=== PATIENT | female | born 1965 | race Caucasian/White ===

== ENCOUNTER 2017-11-24 12:35 | Inpatient (IN) | payer MEDICARE, BC ==
[~2017-11-24] VITALS: Ht 170.2 cm; Wt 111.3 kg
[~2017-11-24 12:35] MED LIST: ESMOLOL HCL 100 MG/10 ML VIAL IV ONE; FURO80TA PO; LEVO100T5 PO; PAXI10TA8 PO; PROPOFOL 200 MG/20 ML AMP IV ONE; SODIUM CHLOR 0.9% 250 ML INJ 250 ML IV ONE; TEMA30CA PO
[2017-11-24 12:43] VITALS: BP 150/90; PULSE 107; RESP 18; TEMP 99.5; O2SAT 97
[2017-11-24] MEDS ORDERED: SODIUM CHLORIDE 0.9% FLUSH 10 ML FLUSH IV FLUSH PRN ×3 (13:00→18:15)
--- NOTE | 2017-11-24 13:08 | PD ---
HPI Chief Complaint: Fever Time Seen by Provider: 12:55 Travel History International Travel<30 days: No Contact w/Intl Traveler<30days: No Traveled to known affect area: No History of Present Illness HPI 52 YO F with PMH of ESRD, HTN presents to the ED for evaluation of abnormal result. The patient is followed by Dr. Parks, just placed on the kidney transplant list. She states that she has had a cough 2 days with associated wheezing. She states that yesterday she had a temp of 95.4 and later in the day of 101. Denies fever today. She states that she has been using an unknown intraperitoneal antibiotic 2 days. She endorses bilateral lower extremity edema for the same period of time. She states that she has been infusing approximately 1-2 L of fluid with her IV antibiotics but whenever she withdraws the fluid there is only output of approximately 100-200 mL's. Patient takes 80 mg Lasix daily. She states that she has had bacterial peritonitis approximately 3 weeks ago for which she took 2 weeks of antibiotics. She states that she had peritoneal fluid analysis drawn on Monday and was called today with the result that there was yeast in her peritoneal fluid. She was instructed to come to the emergency room for evaluation and removal of her PD cath. PFSH Social History Tobacco Use: No Allergies-Medications (Allergen,Severity, Reaction): Coded Allergies: adhesive (Unverified Allergy, Intermediate, Rash, 04/13/17) May be due to duration of exposure doxycycline (Unverified Allergy, Intermediate, Tongue Swelling, Hives, ) erythromycin base (Unverified Allergy, Intermediate, Tongue Swelling, Hives, 04/13/17) minocycline (Unverified Allergy, Intermediate, Tongue Swelling, Hives, ) penicillin G (Unverified Allergy, Intermediate, Tongue Swelling, Hives, ) tigecycline (Unverified Allergy, Intermediate, Tongue Swelling, Hives, ) lactose (Unverified Adverse Reaction, Intermediate, 04/13/17) Reported Meds & Prescriptions Reported Meds & Active Scripts Active Reported Renvela (Sevelamer Carbonate) 800 Mg Tab 800 Mg PO TID Trazodone (Trazodone HCl) 50 Mg Tab 50 Mg PO HS Effexor (Venlafaxine HCl) 37.5 Mg Tab 37.5 Mg PO DAILY Amlodipine (Amlodipine Besylate) 10 Mg Tab 10 Mg PO DAILY Furosemide 80 Mg Tab 80 Mg PO DAILY Levothyroxine (Levothyroxine Sodium) 100 Mcg Tab 100 Mcg PO DAILY Review of Systems Except as stated in HPI: all other systems reviewed are Neg Physical Exam Narrative GENERAL: Well-nourished, well-developed obese white female in no acute distress. SKIN: Focused skin assessment warm/dry. HEAD: Normocephalic. EYES: No scleral icterus. No injection or drainage. NECK: Supple, trachea midline. No JVD or lymphadenopathy. CARDIOVASCULAR: Regular rate and rhythm without murmurs, gallops, or rubs. RESPIRATORY: Breath sounds equal with end expiratory wheezing bilaterally. No accessory muscle use. GASTROINTESTINAL: Abdomen soft, non-tender, nondistended. No fluid wave. Active bowel sounds. PD cath in place, implant site well-healed without signs of infection. MUSCULOSKELETAL: No cyanosis. 1+ edema in the bilateral lower extremities. BACK: Nontender without obvious deformity. No CVA tenderness. Data Data Last Documented VS Vital Signs Date Time Temp Pulse Resp B/P (MAP) Pulse Ox O2 Delivery O2 Flow Rate FiO2 11/24/17 14:38 98.9 93 20 190/91 (124) 98 Room Air Orders Orders Complete Blood Count With Diff (11/24/17 12:56) Comprehensive Metabolic Panel (11/24/17 12:56) Prothrombin Time / Inr (Pt) (11/24/17 12:56) Act Partial Throm Time (Ptt) (11/24/17 12:56) Urinalysis - C+S If Indicated (11/24/17 12:56) Iv Access Insert/Monitor (11/24/17 12:56) Ecg Monitoring (11/24/17 12:56) Oximetry (11/24/17 12:56) Sodium Chloride 0.9% Flush (Ns Flush) (11/24/17 13:00) Electrocardiogram (11/24/17 ) Chest, Single Ap (11/24/17 ) B-Type Natriuretic Peptide (11/24/17 13:08) Fluconazole 400 Mg Premix Bag (Diflucan (11/24/17 14:45) Consult Infectious Disease (11/24/17 ) Fluid Culture And Gram Stain (11/24/17 14:34) Fluid Fungus Culture And Stain (11/24/17 14:34) Peritoneal Cell Count + Diff (11/24/17 14:34) Blood Culture (11/24/17 14:34) Consult Nephrology (11/24/17 ) Admit Order (Ed Use Only) (11/24/17 14:53) Labs Laboratory Tests Test 11/24/17 13:19 11/24/17 13:57 White Blood Count 6.7 TH/MM3 Red Blood Count 3.13 MIL/MM3 Hemoglobin 9.3 GM/DL Hematocrit 27.3 % Mean Corpuscular Volume 87.2 FL Mean Corpuscular Hemoglobin 29.9 PG Mean Corpuscular Hemoglobin Concent 34.3 % Red Cell Distribution Width 12.8 % Platelet Count 298 TH/MM3 Mean Platelet Volume 7.3 FL Neutrophils (%) (Auto) 72.8 % Lymphocytes (%) (Auto) 10.6 % Monocytes (%) (Auto) 10.3 % Eosinophils (%) (Auto) 5.7 % Basophils (%) (Auto) 0.6 % Neutrophils # (Auto) 4.9 TH/MM3 Lymphocytes # (Auto) 0.7 TH/MM3 Monocytes # (Auto) 0.7 TH/MM3 Eosinophils # (Auto) 0.4 TH/MM3 Basophils # (Auto) 0.0 TH/MM3 CBC Comment DIFF FINAL Differential Comment Prothrombin Time 9.6 SEC Prothromb Time International Ratio 0.9 RATIO Activated Partial Thromboplast Time 28.8 SEC Blood Urea Nitrogen 44 MG/DL Creatinine 8.80 MG/DL Random Glucose 85 MG/DL Total Protein 6.5 GM/DL Albumin 2.4 GM/DL Calcium Level 8.4 MG/DL Alkaline Phosphatase 49 U/L Aspartate Amino Transf (AST/SGOT) 23 U/L Alanine Aminotransferase (ALT/SGPT) 8 U/L Total Bilirubin 0.2 MG/DL Sodium Level 139 MEQ/L Potassium Level 3.9 MEQ/L Chloride Level 102 MEQ/L Carbon Dioxide Level 26.1 MEQ/L Anion Gap 11 MEQ/L Estimat Glomerular Filtration Rate 5 ML/MIN Urine Color LIGHT-YELLOW Urine Turbidity CLEAR Urine pH 7.0 Urine Specific [place] 1.010 Urine Protein 300 mg/dL Urine Glucose (UA) NEG mg/dL Urine Ketones NEG mg/dL Urine Occult Blood MOD Urine Nitrite NEG Urine Bilirubin NEG Urine Urobilinogen LESS THAN 2.0 MG/DL Urine Leukocyte Esterase NEG Urine RBC 3 /hpf Urine WBC 1 /hpf Urine Squamous Epithelial Cells 1 /hpf Urine Mucus FEW /lpf Microscopic Urinalysis Comment CULT NOT INDICATED MDM Medical Decision Making Medical Screen Exam Complete: Yes Emergency Medical Condition: Yes Differential Diagnosis Bacterial peritonitis versus CHF versus electrolyte abnormality versus other Narrative Course 52-year-old female with PMH of ESRD, HTN presents to the ED after being instructed to seek treatment 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 Parks. Patient recently treated for bacterial peritonitis, recent fluid studies revealed fungal peritonitis. Patient has been treating with intraperitoneal antibiotics at home. She states that she instills 1-2 L of fluid with each dose of antibiotics but is only been able to withdraw 100 -200 mL's. Endorses cough, wheezing and lower extremity edema during the same time. Temp 99.5, pulse 107, BP 150/90 on presentation. On exam this is a nontoxic-appearing white female in no acute distress. She does have end expiratory wheezing bilaterally. Abdomen soft, nontender, PD catheter without signs of infection. There is 1+ edema of the lower extremities. I spoke with Dr. Parks who recommends IVDiflucan, ID consult, admission for Tenckhoff removal. Patient is agreeable with this plan. CBC: WBC 6.7. Hemoglobin 9.3. INR 0.9. BUN 44, creatinine 8.8. Calcium 8.4. Potassium 3.9. BNP pending. UA: No culture indicated. Peritoneal fluid studies ordered and pending. Blood cultures ordered and pending. IV Diflucan initiated. ID consult placed. Consult placed with Dr. Parks. I spoke with Dr. Vazquez, resident who agrees to accept the patient to the medicine service under Dr. Khan. Please see medicine notes for disposition. Marylou Mcmanus Nov 24, 2017 13:08
[2017-11-24 13:09] VITALS: BP 220/102; PULSE 98; RESP 21; O2SAT 96
[2017-11-24 13:32] LABS: AUTOMATED NEUTROPHIL # 4.9 TH/MM3 (1.8-7.7); BASOPHIL % 0.6 % (0.0-2.0); EOSINOPHIL # 0.4 TH/MM3 (0-0.4); EOSINOPHIL % 5.7 % (0.0-4.0); HEMATOCRIT 27.3 % (35.0-46.0); HEMOGLOBIN 9.3 GM/DL (11.6-15.3); LYMPH % 10.6 % (9.0-44.0); LYMPHOCYTE # 0.7 TH/MM3 (1.0-4.8); MEAN CELL VOLUME 87.2 FL (80.0-100.0); MEAN CORPUSCULAR HEMOGLOBIN 29.9 PG (27.0-34.0); MEAN CORPUSCULAR HGB CONC 34.3 % (32.0-36.0); MEAN PLATELET VOLUME 7.3 FL (7.0-11.0); MONO % 10.3 % (0.0-8.0); MONOCYTE # 0.7 TH/MM3 (0-0.9); NEUT % 72.8 % (16.0-70.0); PLATELET COUNT 298 TH/MM3 (150-450); RED BLOOD COUNT 3.13 MIL/MM3 (4.00-5.30); RED CELL DISTRIBUTION WIDTH 12.8 % (11.6-17.2); WHITE BLOOD COUNT 6.7 TH/MM3 (4.0-11.0)
[2017-11-24 13:39] LABS: INTERNATIONAL NORMALIZED RATIO 0.9 RATIO; PROTHROMBIN TIME - PATIENT 9.6 SEC (9.8-11.6)
[2017-11-24 13:44] LABS: ALBUMIN 2.4 GM/DL (3.4-5.0); ALT (GPT) 8 U/L (10-53); AST (GOT) 23 U/L (15-37); BICARBONATE 26.1 MEQ/L (21.0-32.0); BLOOD UREA NITROGEN 44 MG/DL (7-18); CALCIUM 8.4 MG/DL (8.5-10.1); CHLORIDE 102 MEQ/L (98-107); GLOMERULAR FILTRATION RATE 5 ML/MIN (>89); GLUCOSE,RANDOM 85 MG/DL (74-106); SODIUM (NA) 139 MEQ/L (136-145)
[2017-11-24 13:46] LABS: ALKALINE PHOSPHATASE 49 U/L (45-117); TOTAL BILIRUBIN ADULT 0.2 MG/DL (0.2-1.0); TOTAL PROTEIN 6.5 GM/DL (6.4-8.2)
[2017-11-24 14:16] LABS: BILIRUBIN, URINE NEG (NEG); BLOOD, URINE MOD (NEG); GLUCOSE,URINE NEG (NEG); KETONE, URINE NEG (NEG); MUCUS URINE FEW /lpf (OCC); NITRITE,URINE NEG (NEG); SQUAMOUS EPITHELIAL CELL URINE 1 /hpf (0-5); URINE COLOR LIGHT-YELLOW (YELLW/STRAW); URINE LEUKOCYTE ESTERASE NEG (NEG)
[2017-11-24] MEDS ORDERED: SEVEL800 PO (14:25)
[2017-11-24] MEDS ORDERED: AMLO10TA2 PO (14:25)
[2017-11-24] MEDS ORDERED: TRAZ50TA12 PO (14:25)
[2017-11-24] MEDS ORDERED: VENL37.5 PO (14:25)
--- NOTE | 2017-11-24 14:36 | RADRPT ---
EXAM DATE/TIME: 11/24/2017 13:47 [place] COMPARISON: No previous studies available for comparison. INDICATIONS : Fever. MEDICAL HISTORY : Dialysis SURGICAL HISTORY : None. ENCOUNTER: Initial ACUITY: 2 days PAIN SCORE: 3/10 LOCATION: Bilateral chest FINDINGS: A single view of the chest demonstrates the lungs to be symmetrically aerated without evidence of mas s, infiltrate or effusion. The cardiomediastinal contours are unremarkable. Osseous structures are intact. CONCLUSION: 1. No acute cardiopulmonary disease. Kale Wyatt MD on November 24, 2017 at 14:34 Board Certified Radiologist. This report was verified electronically.
[2017-11-24 14:38] VITALS: BP 190/91; PULSE 93; RESP 20; TEMP 98.9; O2SAT 98
[2017-11-24] MEDS ORDERED: FLUCONAZOLE 400 MG PREMIX BAG 200 ML IV ONE (14:45)
--- NOTE | 2017-11-24 14:55 | HHI.HP ---
[facility] Service Family Medicine Primary Care Physician [facility] Admission Diagnosis Diagnoses: International Travel<30 Days: No Contact w/Intl Traveler<30days: No Known Affected Area: No History of Present Illness Patient is a 52 year old female with a past medical history significant of ESRD and HTN who presents to the ED following positive peritoneal fluid cultures per nephrology. Starting Monday, patient noticed that her peritoneal dialysis output was drastically decreased; she input 1000cc but output was limited to 100cc. This decrease in output was accompanied with significant lower extremity edema noted on Monday. On Monday, the patient reported to [facility] for peritoneal dialysis and "PET" testing. The peritoneal fluid was noted to be cloudy and consequently sent off for culture. The patient was started on an intraperitoneal antibiotic at that time. She was called today and told that the culture grew yeast. She was asked to report to the ED. The patient also reports runny nose and congestion, shortness of breath and wheezing as well as a cough since Monday. She coughs up clear mucus and experiences abdominal pain with each cough. She reports fluctuation in body temperature with 101F being the highest recorded temperature at home. She reports chills on . She identifies her granddaughter as a sick contact; she has had a runny nose. Of note, patient was diagnosed with ESRD two years ago; reason unknown. She was placed on the transplant list 11/24/17. She reports being treated for bacterial peritonitis approximately three weeks ago; she was prescribed an antibiotic x2 weeks. Review of Systems Constitutional: COMPLAINS OF: Diaphoretic episodes (At night on Monday ), Fatigue, Fever, Weight gain, Chills, Change in appetite (Decreased ) Eyes: DENIES: Blurred vision, Vision loss, Double Vision Ears, nose, mouth, throat: COMPLAINS OF: Nasal discharge, Running Nose, DENIES : Throat pain, Ear Pain Respiratory: COMPLAINS OF: Cough, Wheezing, Sputum production (Clear ), Shortness of breath Cardiovascular: COMPLAINS OF: Lower Extremity Edema, DENIES: Chest pain, Palpitations Gastrointestinal: COMPLAINS OF: Abdominal pain, Diarrhea (Since Monday ), Nausea (Only Monday), Vomiting (Only Monday ), DENIES: Black stools, Bloody stools, Constipation Genitourinary: COMPLAINS OF: Urinary frequency (More often but decreased volume since Monday ) Musculoskeletal: DENIES: Joint pain, Muscle aches, Back pain Integumentary: DENIES: Rash, Nail changes Hematologic/lymphatic: COMPLAINS OF: Bruising Neurologic: DENIES: Headache Psychiatric: DENIES: Anxiety, Depression, Suicidal Ideation Past Family Social History Past Medical History ESRD HTN Depression Past Surgical History PD cath placement Port placement Tubal ligation Reported Medications Renvela (Sevelamer Carbonate) 800 Mg Tab 800 Mg PO TID Trazodone (Trazodone HCl) 50 Mg Tab 50 Mg PO HS Effexor (Venlafaxine HCl) 37.5 Mg Tab 37.5 Mg PO DAILY Amlodipine (Amlodipine Besylate) 10 Mg Tab 10 Mg PO DAILY Furosemide 80 Mg Tab 80 Mg PO DAILY Levothyroxine (Levothyroxine Sodium) 100 Mcg Tab 100 Mcg PO DAILY Allergies: Coded Allergies: adhesive (Unverified Allergy, Intermediate, Rash, 04/13/17) May be due to duration of exposure doxycycline (Unverified Allergy, Intermediate, Tongue Swelling, Hives, ) erythromycin base (Unverified Allergy, Intermediate, Tongue Swelling, Hives, 04/13/17) minocycline (Unverified Allergy, Intermediate, Tongue Swelling, Hives, ) penicillin G (Unverified Allergy, Intermediate, Tongue Swelling, Hives, ) tigecycline (Unverified Allergy, Intermediate, Tongue Swelling, Hives, ) tetracycline (Verified Allergy, Mild, HIVES, 11/24/17) lactose (Unverified Adverse Reaction, Intermediate, 04/13/17) Active Ordered Medications Current Medications Medications (Trade) Dose Ordered Sig/Dasia Route Start Time Stop Time Status Last Admin (Norvasc) 10 mg DAILY PO 11/24/17 17:00 (Lasix) 80 mg DAILY PO 11/25/17 09:00 (Synthroid) 100 mcg DAILY@0600 PO 11/25/17 06:00 (Renvela) 800 mg TID PO 11/24/17 18:00 (Desyrel) 50 mg HS PO 11/24/17 21:00 (Effexor Xr) 37.5 mg DAILY PO 11/24/17 17:15 (NS Flush) 2 ml UNSCH PRN IV FLUSH 11/24/17 17:00 (NS Flush) 2 ml BID IV FLUSH 11/24/17 21:00 (Zofran Inj) 4 mg Q6H PRN IVP 11/24/17 17:00 (Tylenol) 650 mg Q6H PRN PO 11/24/17 17:00 (Monica-Colace) 1 tab BID PO 11/24/17 21:00 (Milk Of Magnesia Liq) 30 ml Q12H PRN PO 11/24/17 17:00 (Senokot) 17.2 mg Q12H PRN PO 11/24/17 17:00 (Dulcolax Supp) 10 mg DAILY PRN RECTAL 11/24/17 17:00 (Lactulose Liq) 30 ml DAILY PRN PO 11/24/17 17:00 (NS Flush) UNSCH PRN IV FLUSH 11/24/17 18:15 (Heparin Inj) UNSCH PRN IV FLUSH 11/24/17 18:15 Miscellaneous Information ALL NURSING DEPARTME... UNSCH PRN .XX 11/24/17 19:23 11/25/17 19:22 Family History Father - emphysema Social History Lives with dogs. Alcohol: None. Tobacco: None. Smoked for 5 years; quit in 1997. Drugs: None. Physical Exam Vital Signs Vital Signs Date Time Temp Pulse Resp B/P (MAP) Pulse Ox O2 Delivery O2 Flow Rate FiO2 11/24/17 14:38 98.9 93 20 190/91 (124) 98 Room Air 11/24/17 13:11 (141) Room Air 11/24/17 13:09 98 21 220/102 (141) 96 Room Air 11/24/17 12:43 99.5 107 18 150/90 (110) 97 Physical Exam GENERAL: This is a well-nourished, well-developed patient, in no apparent distress. SKIN: Warm and dry. HEAD: Atraumatic. Normocephalic. EYES: Pupils equal round. Extraocular motions intact. No scleral icterus. No injection or drainage. ENT: Nose without bleeding, purulent drainage or septal hematoma. Airway patent. NECK: Trachea midline. Supple, nontender, no meningeal signs. CARDIOVASCULAR: Regular rate and rhythm without murmurs, gallops, or rubs. RESPIRATORY: Clear to auscultation. Breath sounds equal bilaterally. No wheezes , rales, or rhonchi. GASTROINTESTINAL: Abdomen soft, non-tender, nondistended. No hepato-splenomegaly , or palpable masses. No guarding. Cath tubing perturbing from left lower quadrant. No signs of infection. MUSCULOSKELETAL: Extremities without clubbing, cyanosis. Minimal edema, L > R. No joint tenderness, effusion, or edema noted. Calf tenderness on left. NEUROLOGICAL: Awake and alert. Cranial nerves II through XII intact. Motor and sensory grossly within normal limits. Five out of 5 muscle strength in all muscle groups. Normal speech. Laboratory Laboratory Tests Test 11/24/17 13:19 11/24/17 13:57 White Blood Count 6.7 Red Blood Count 3.13 Hemoglobin 9.3 Hematocrit 27.3 Mean Corpuscular Volume 87.2 Mean Corpuscular Hemoglobin 29.9 Mean Corpuscular Hemoglobin Concent 34.3 Red Cell Distribution Width 12.8 Platelet Count 298 Mean Platelet Volume 7.3 Neutrophils (%) (Auto) 72.8 Lymphocytes (%) (Auto) 10.6 Monocytes (%) (Auto) 10.3 Eosinophils (%) (Auto) 5.7 Basophils (%) (Auto) 0.6 Neutrophils # (Auto) 4.9 Lymphocytes # (Auto) 0.7 Monocytes # (Auto) 0.7 Eosinophils # (Auto) 0.4 Basophils # (Auto) 0.0 CBC Comment DIFF FINAL Differential Comment Prothrombin Time 9.6 Prothromb Time International Ratio 0.9 Activated Partial Thromboplast Time 28.8 Blood Urea Nitrogen 44 Creatinine 8.80 Random Glucose 85 Total Protein 6.5 Albumin 2.4 Calcium Level 8.4 Alkaline Phosphatase 49 Aspartate Amino Transf (AST/SGOT) 23 Alanine Aminotransferase (ALT/SGPT) 8 Total Bilirubin 0.2 Sodium Level 139 Potassium Level 3.9 Chloride Level 102 Carbon Dioxide Level 26.1 Anion Gap 11 Estimat Glomerular Filtration Rate 5 Urine Color LIGHT-YELLOW Urine Turbidity CLEAR Urine pH 7.0 Urine Specific [place] 1.010 Urine Protein 300 Urine Glucose (UA) NEG Urine Ketones NEG Urine Occult Blood MOD Urine Nitrite NEG Urine Bilirubin NEG Urine Urobilinogen LESS THAN 2.0 Urine Leukocyte Esterase NEG Urine RBC 3 Urine WBC 1 Urine Squamous Epithelial Cells 1 Urine Mucus FEW Microscopic Urinalysis Comment CULT NOT INDICATED Result Diagram: 11/24/17 1319 11/24/17 1319 Imaging Last 72 hours Impressions Chest X-Ray 11/24/17 0000 Signed Impressions: Service Date/Time: Friday, November 24, 2017 13:47 - CONCLUSION: 1. No acute cardiopulmonary disease. MD Pepe Shah VTE Risk Assessment Pepe VTE Risk Assessment: Mod/High Risk (score >= 2) Pepe Risk Assessment Model Point Value = 1 Point Value = 2 Point Value = 3 Point Value = 5 Age 41-60 Minor surgery BMI > 25 kg/m2 Swollen legs Varicose veins or History of unexplained or recurrent spontaneous Oral contraceptives or hormone replacement Sepsis (< 1 month) Serious lung disease, including pneumonia (< 1 month) Abnormal pulmonary function Acute myocardial infarction Congestive heart failure (< 1 month) History of inflammatory bowel disease Medical patient at bed rest Age 61-74 Arthroscopic surgery Major open surgery (> 45 min) Laparoscopic surgery (> 45 min) Malignancy Confined to bed (> 72 hours) Immobilizing plaster cast Central venous access Age >= 75 History of VTE Family history of VTE Factor V Leiden Prothrombin [id number] Lupus anticoagulant Anticardiolipin antibodies Elevated serum homocysteine Heparin-induced thrombocytopenia Other congenital or acquired thrombophilia Stroke (< 1 month) Elective arthroplasty Hip, pelvis, or leg fracture Acute spinal cord injury (< 1 month) Prophylaxis Regimen Total Risk Factor Score Risk Level Prophylaxis Regimen 0-1 Low Early ambulation 2 Moderate Order ONE of the following: *Sequential Compression Device (SCD) *Heparin 5000 units SQ BID 3-4 Higher Order ONE of the following medications: *Heparin 5000 units SQ TID *Enoxaparin/Lovenox 40 mg SQ daily (WT < 150 kg, CrCl > 30 mL/min) *Enoxaparin/Lovenox 30 mg SQ daily (WT < 150 kg, CrCl > 10-29 mL/min) *Enoxaparin/Lovenox 30 mg SQ BID (WT < 150 kg, CrCl > 30 mL/min) AND/OR *Sequential Compression Device (SCD) 5 or more Highest Order ONE of the following medications: *Heparin 5000 units SQ TID (Preferred with Epidurals) *Enoxaparin/Lovenox 40 mg SQ daily (WT < 150 kg, CrCl > 30 mL/min) *Enoxaparin/Lovenox 30 mg SQ daily (WT < 150 kg, CrCl > 10-29 mL/min) *Enoxaparin/Lovenox 30 mg SQ BID (WT < 150 kg, CrCl > 30 mL/min) AND *Sequential Compression Device (SCD) Assessment and Plan Assessment and Plan Patient is a 52 year old female with a past medical history significant of ESRD and HTN who presents to the ED following positive peritoneal fluid cultures per nephrology. Admitted for PD catheter removal, VasCath placement to allow for HD and anti-fungal therapy. Code Status Full code. Discussed Condition With Drs. Khan and Yamila. Problem List: (1) Peritonitis due to infected peritoneal dialysis catheter ICD Codes: T85.71XA - Infection and inflammatory reaction due to peritoneal dialysis catheter, initial encounter; K65.9 - Peritonitis, unspecified Status: Acute Plan: Patient with history of ESRD on peritoneal dialysis. Peritoneal fluid cultured on Monday, growing yeast per nephrology. Records requested. PD catheter to be removed by vascular surgery on 11/24. ID consulted. Awaiting recommendations. Medications: * In ED, Fluconazole 400mg IV once. * Micafungin 100mg IV daily. (2) ESRD (end stage renal disease) ICD Codes: N18.6 - End stage renal disease Status: Chronic Plan: Patient with history of ESRD, diagnosed two years ago. She undergoes peritoneal dialysis daily at home. She was placed on transplant list 11/24/17. * VasCath to be placed by IR for HD 11/24. * Dialysis per nephrology. (3) Hypertension ICD Codes: I10 - Essential (primary) hypertension Status: Chronic Plan: Patient with history of hypertension. * Continue home meds. * Labetalol 10mg IV q6hr PRN SBP >=170 or DBP >=100. Hold for HR<=60. (4) Lower extremity edema ICD Codes: R60.0 - Localized edema Status: Acute Plan: Left sided lower extremity edema and calf pain. * US Doppler left lower extremity to rule out DVT. (5) Fluid, Electrolyte, Nutrition and Prophylaxis Status: Acute Plan: Fluid: * Tolerates PO. Electrolyte: * Monitor and replete as necessary. Nutrition: * NPO in anticipation of procedure/surgery. Prophylaxis: * SCD. * Chemoprophylaxis held in anticipation of procedure/surgery. Physician Certification 2 Midnight Certification Type: Admission for Inpatient Services Order for Inpatient Services The services are ordered in accordance with Medicare regulations or non- Medicare payer requirements, as applicable. In the case of services not specified as inpatient-only, they are appropriately provided as inpatient services in accordance with the 2-midnight benchmark. Estimated LOS (days): 2 days is the estimated time the patient will need to remain in the hospital, assuming treatment plan goals are met and no additional complications. Post-Hospital Plan: Not yet determined Problem Qualifiers (1) Hypertension: Qualified Codes: I10 - Essential (primary) hypertension Suyapa Vazquez MD R1 Nov 24, 2017 14:55
--- NOTE | 2017-11-24 15:57 | PD ---
Physical Exam Narrative I, Dr. Hurtado, have reviewed the advance practice practitioner's documentation and am in agreement, met with the patient face to face, made the diagnosis, and the medical decision making was done by me. *My assessment and Findings: Patient is a 52 year old female who comes in because of concerns for possible infection of her dialysis port. She has been having issues with fevers and cultures from her dialysis aspirate have grown yeast. Abdomen is soft and nontender. Data Data Last Documented VS Orders Orders Complete Blood Count With Diff (11/24/17 12:56) Comprehensive Metabolic Panel (11/24/17 12:56) Prothrombin Time / Inr (Pt) (11/24/17 12:56) Act Partial Throm Time (Ptt) (11/24/17 12:56) Urinalysis - C+S If Indicated (11/24/17 12:56) Iv Access Insert/Monitor (11/24/17 12:56) Ecg Monitoring (11/24/17 12:56) Oximetry (11/24/17 12:56) Sodium Chloride 0.9% Flush (Ns Flush) (11/24/17 13:00) Electrocardiogram (11/24/17 ) Chest, Single Ap (11/24/17 ) B-Type Natriuretic Peptide (11/24/17 13:08) Fluconazole 400 Mg Premix Bag (Diflucan (11/24/17 14:45) Consult Infectious Disease (11/24/17 ) Fluid Culture And Gram Stain (11/24/17 14:34) Fluid Fungus Culture And Stain (11/24/17 14:34) Peritoneal Cell Count + Diff (11/24/17 14:34) Blood Culture (11/24/17 14:34) Consult Nephrology (11/24/17 ) Admit Order (Ed Use Only) (11/24/17 14:53) Labs Laboratory Tests Test 11/24/17 13:19 11/24/17 13:57 White Blood Count 6.7 TH/MM3 Red Blood Count 3.13 MIL/MM3 Hemoglobin 9.3 GM/DL Hematocrit 27.3 % Mean Corpuscular Volume 87.2 FL Mean Corpuscular Hemoglobin 29.9 PG Mean Corpuscular Hemoglobin Concent 34.3 % Red Cell Distribution Width 12.8 % Platelet Count 298 TH/MM3 Mean Platelet Volume 7.3 FL Neutrophils (%) (Auto) 72.8 % Lymphocytes (%) (Auto) 10.6 % Monocytes (%) (Auto) 10.3 % Eosinophils (%) (Auto) 5.7 % Basophils (%) (Auto) 0.6 % Neutrophils # (Auto) 4.9 TH/MM3 Lymphocytes # (Auto) 0.7 TH/MM3 Monocytes # (Auto) 0.7 TH/MM3 Eosinophils # (Auto) 0.4 TH/MM3 Basophils # (Auto) 0.0 TH/MM3 CBC Comment DIFF FINAL Differential Comment Prothrombin Time 9.6 SEC Prothromb Time International Ratio 0.9 RATIO Activated Partial Thromboplast Time 28.8 SEC Blood Urea Nitrogen 44 MG/DL Creatinine 8.80 MG/DL Random Glucose 85 MG/DL Total Protein 6.5 GM/DL Albumin 2.4 GM/DL Calcium Level 8.4 MG/DL Alkaline Phosphatase 49 U/L Aspartate Amino Transf (AST/SGOT) 23 U/L Alanine Aminotransferase (ALT/SGPT) 8 U/L Total Bilirubin 0.2 MG/DL Sodium Level 139 MEQ/L Potassium Level 3.9 MEQ/L Chloride Level 102 MEQ/L Carbon Dioxide Level 26.1 MEQ/L Anion Gap 11 MEQ/L Estimat Glomerular Filtration Rate 5 ML/MIN B-Type Natriuretic Peptide 101 PG/ML Urine Color LIGHT-YELLOW Urine Turbidity CLEAR Urine pH 7.0 Urine Specific [place] 1.010 Urine Protein 300 mg/dL Urine Glucose (UA) NEG mg/dL Urine Ketones NEG mg/dL Urine Occult Blood MOD Urine Nitrite NEG Urine Bilirubin NEG Urine Urobilinogen LESS THAN 2.0 MG/DL Urine Leukocyte Esterase NEG Urine RBC 3 /hpf Urine WBC 1 /hpf Urine Squamous Epithelial Cells 1 /hpf Urine Mucus FEW /lpf Microscopic Urinalysis Comment CULT NOT INDICATED MDM Supervised Visit with NEGRITO: Yes Narrative Course Labs sent show no acute abnormalities. ID will be consulted for antifungal treatment. Admitted for further management. Diagnosis Primary Impression: Peritonitis due to infected peritoneal dialysis catheter Qualified Codes: T85.71XD - Infection and inflammatory reaction due to peritoneal dialysis catheter, subsequent encounter; K65.9 - Peritonitis, unspecified Scripts Fluconazole (Diflucan) 200 Mg Tab 200 MG PO DAILY, #42 TAB Prov: Suyapa Vazquez MD R1 11/29/17 Brompheniramine-Phenylephrine Liq (Dimaphen Childrens Liq) 1-2.5 Mg/5 Ml Elix 5 ML PO Q6H Y for COUGH, #50 ML Do not exceed 6 doses in 24 hours. Prov: Suyapa Vazquez MD R1 11/29/17 Jackie Hurtado MD Nov 24, 2017 15:57
[2017-11-24 16:08] VITALS: BP 185/88; PULSE 96
--- NOTE | 2017-11-24 16:24 | PD.CONS ---
HPI Service Nephrology Consult Requested By Dr. Khan Reason for Consult ESRD with fungal peritonitis Primary Care Physician [facility] History of Present Illness Patient is a 52-year-old white female with history of end-stage renal disease, hypertension on peritoneal dialysis who is developed peritonitis and was placed on antibiotics vancomycin and ceftazidime, she developed cloudy fluid and reabsorbing most of the fluid, cultures are positive for yeast, patient has been admitted for further management. She complains of some abdominal cramps on the flank area. Review of Systems Constitutional: COMPLAINS OF: Fatigue Respiratory: COMPLAINS OF: Cough Gastrointestinal: COMPLAINS OF: Abdominal pain Psychiatric: COMPLAINS OF: Anxiety, Depression Past Family Social History Allergies: Coded Allergies: adhesive (Unverified Allergy, Intermediate, Rash, 04/13/17) May be due to duration of exposure doxycycline (Unverified Allergy, Intermediate, Tongue Swelling, Hives, ) erythromycin base (Unverified Allergy, Intermediate, Tongue Swelling, Hives, 04/13/17) minocycline (Unverified Allergy, Intermediate, Tongue Swelling, Hives, ) penicillin G (Unverified Allergy, Intermediate, Tongue Swelling, Hives, ) tigecycline (Unverified Allergy, Intermediate, Tongue Swelling, Hives, ) tetracycline (Verified Allergy, Mild, HIVES, 11/24/17) lactose (Unverified Adverse Reaction, Intermediate, 04/13/17) Past Medical History ESRD Hypertension Hypothyroidism Depression Secondary hyperparathyroidism Past Surgical History Tubal ligation Tenckhoff catheter insertion Reported Medications Reported Meds & Active Scripts Active Reported Renvela (Sevelamer Carbonate) 800 Mg Tab 800 Mg PO TID Trazodone (Trazodone HCl) 50 Mg Tab 50 Mg PO HS Effexor (Venlafaxine HCl) 37.5 Mg Tab 37.5 Mg PO DAILY Amlodipine (Amlodipine Besylate) 10 Mg Tab 10 Mg PO DAILY Furosemide 80 Mg Tab 80 Mg PO DAILY Levothyroxine (Levothyroxine Sodium) 100 Mcg Tab 100 Mcg PO DAILY Active Ordered Medications Current Medications Medications (Trade) Dose Ordered Sig/Dasia Route Start Time Stop Time Status Last Admin (NS Flush) 2 ml UNSCH PRN IV FLUSH 11/24/17 13:00 Fluconazole/ Sodium Chloride 200 ml @ 100 mls/hr ONCE ONCE IV 11/24/17 14:45 11/24/17 16:44 11/24/17 16:16 (Norvasc) 10 mg DAILY PO 11/24/17 16:15 UNV (Lasix) 80 mg DAILY PO 11/25/17 09:00 UNV (Synthroid) 100 mcg DAILY PO 11/25/17 09:00 UNV (Renvela) 800 mg TID PO 11/24/17 18:00 UNV (Desyrel) 50 mg HS PO 11/24/17 21:00 UNV Non-Formulary Medication 37.5 mg DAILY PO 11/24/17 16:15 UNV Family History Noncontributory Social History Smoked when she was younger quit several years, alcohol use none Physical Exam Vital Signs Vital Signs Date Time Temp Pulse Resp B/P (MAP) Pulse Ox O2 Delivery O2 Flow Rate FiO2 11/24/17 16:08 96 185/88 (120) 11/24/17 14:38 98.9 93 20 190/91 (124) 98 Room Air 11/24/17 13:11 (141) Room Air 11/24/17 13:09 98 21 220/102 (141) 96 Room Air 11/24/17 12:43 99.5 107 18 150/90 (110) 97 Physical Exam GENERAL: Well-nourished, well-developed patient. SKIN: Warm and dry. HEAD: Normocephalic. EYES: No scleral icterus. No injection or drainage. NECK: Supple, trachea midline. No JVD or lymphadenopathy. CARDIOVASCULAR: Regular rate and rhythm without murmurs, gallops, or rubs. RESPIRATORY: Breath sounds equal bilaterally. No accessory muscle use. GASTROINTESTINAL: Abdomen soft, mild-tender, nondistended. EXTREMITIES: No cyanosis, or edema. NEUROLOGICAL: Awake, alert, and oriented x 3. Non-focal. Laboratory Laboratory Tests Test 11/24/17 13:19 11/24/17 13:57 White Blood Count 6.7 Red Blood Count 3.13 Hemoglobin 9.3 Hematocrit 27.3 Mean Corpuscular Volume 87.2 Mean Corpuscular Hemoglobin 29.9 Mean Corpuscular Hemoglobin Concent 34.3 Red Cell Distribution Width 12.8 Platelet Count 298 Mean Platelet Volume 7.3 Neutrophils (%) (Auto) 72.8 Lymphocytes (%) (Auto) 10.6 Monocytes (%) (Auto) 10.3 Eosinophils (%) (Auto) 5.7 Basophils (%) (Auto) 0.6 Neutrophils # (Auto) 4.9 Lymphocytes # (Auto) 0.7 Monocytes # (Auto) 0.7 Eosinophils # (Auto) 0.4 Basophils # (Auto) 0.0 CBC Comment DIFF FINAL Differential Comment Prothrombin Time 9.6 Prothromb Time International Ratio 0.9 Activated Partial Thromboplast Time 28.8 Blood Urea Nitrogen 44 Creatinine 8.80 Random Glucose 85 Total Protein 6.5 Albumin 2.4 Calcium Level 8.4 Alkaline Phosphatase 49 Aspartate Amino Transf (AST/SGOT) 23 Alanine Aminotransferase (ALT/SGPT) 8 Total Bilirubin 0.2 Sodium Level 139 Potassium Level 3.9 Chloride Level 102 Carbon Dioxide Level 26.1 Anion Gap 11 Estimat Glomerular Filtration Rate 5 Urine Color LIGHT-YELLOW Urine Turbidity CLEAR Urine pH 7.0 Urine Specific [place] 1.010 Urine Protein 300 Urine Glucose (UA) NEG Urine Ketones NEG Urine Occult Blood MOD Urine Nitrite NEG Urine Bilirubin NEG Urine Urobilinogen LESS THAN 2.0 Urine Leukocyte Esterase NEG Urine RBC 3 Urine WBC 1 Urine Squamous Epithelial Cells 1 Urine Mucus FEW Microscopic Urinalysis Comment CULT NOT INDICATED Date/Time Source Procedure Growth Status 11/24/17 14:50 Blood Line Aerobic Blood Culture Pending Received 11/24/17 14:50 Blood Line Anaerobic Blood Culture Pending Received Result Diagram: 11/24/17 1319 11/24/17 1319 Imaging Last Impressions Chest X-Ray 11/24/17 0000 Signed Impressions: Service Date/Time: Friday, November 24, 2017 13:47 - CONCLUSION: 1. No acute cardiopulmonary disease. Kale Wyatt MD Assessment and Plan Problem List: (1) Peritonitis due to infected peritoneal dialysis catheter ICD Codes: T85.71XA - Infection and inflammatory reaction due to peritoneal dialysis catheter, initial encounter; K65.9 - Peritonitis, unspecified Status: Acute Plan: Discussed the plan with the medical team: She needs a Vas-Cath insertion Hemodialysis to be arranged for the morning General surgery consult to take out Tenckhoff catheter Started on Diflucan ID consulted Will follow along with you (2) ESRD (end stage renal disease) ICD Codes: N18.6 - End stage renal disease Status: Chronic Plan: Convert temporarily on hemodialysis she is being treated for fungal peritonitis (3) Hypertension ICD Codes: I10 - Essential (primary) hypertension Status: Chronic Plan: Continue to monitor Problem Qualifiers (1) Peritonitis due to infected peritoneal dialysis catheter: Qualified Codes: T85.71XD - Infection and inflammatory reaction due to peritoneal dialysis catheter, subsequent encounter; K65.9 - Peritonitis, unspecified (2) Hypertension: Qualified Codes: I10 - Essential (primary) hypertension Jayce Parks MD Nov 24, 2017 16:24
[2017-11-24] MEDS ORDERED: ONDANSETRON HCL 4 MG/2 ML VIAL IVP PRN (17:00)
[2017-11-24] MEDS ORDERED: BISACODYL 10 MG SUPP RECTAL PRN (17:00)
[2017-11-24] MEDS ORDERED: MAGNESIUM HYDROXIDE SUSP 30 ML CUP PO PRN (17:00)
[2017-11-24] MEDS ORDERED: LACTULOSE SYRUP 20 GM/30 ML CUP PO PRN (17:00)
[2017-11-24] MEDS ORDERED: SENNOSIDES 8.6 MG TAB PO PRN (17:00)
[2017-11-24] MEDS ORDERED: MIDAZOLAM HCL 2 MG/2 ML VIAL ONE ×2 (17:10→19:28)
[2017-11-24] MEDS: VENLAFAXINE HCL XR 37.5 MG CAP PO SCH (17:15)
[2017-11-24] MEDS ORDERED: VANCOMYCIN HCL 1000 MG VIAL ONE (17:23)
[2017-11-24] MEDS ORDERED: LIDOCAINE 1%/EPINEPHrine 1:100,000 SOLN 30 ML VIAL ONE (17:24)
[2017-11-24] MEDS ORDERED: SODIUM CHLOR 0.9% 250 ML INJ 250 ML ONE (17:24)
[2017-11-24] MEDS ORDERED: VANCOMYCIN 1,000 MG/NS 250 ML IV ONE ×2 (17:30)
[2017-11-24 17:34] LABS: PERITONEAL LYMPHS 13 %; PERITONEAL MONOS 6 %; PERITONEAL POLYS(SEGS) 82 %; PERITONEAL RBC 1173 /MM3 (0-0)
[2017-11-24] MEDS: SEVELAMER CARBONATE 800 MG TAB PO SCH (18:00)
--- NOTE | 2017-11-24 18:05 | PD.RAD ---
Post Procedure Progress Note Pre Procedure Diagnosis: (1) ESRD (end stage renal disease) Post Procedure Diagnosis: (1) Peritonitis due to infected peritoneal dialysis catheter (2) ESRD (end stage renal disease) Procedure Date: Nov 24, 2017 Supervising Radiologist: Kale Wyatt Anesthesia: Local Plan of Activity Patient to Unit: ROPU Patient Condition: Good Additional Comments: HD cath is ready for use See PACS Report for procedural detail/treatment Kale Wyatt MD Nov 24, 2017 18:05
[2017-11-24] MEDS ORDERED: LIDOCAINE HCL 1% PF 10 ML VIAL ONE (18:10)
[2017-11-24] MEDS ORDERED: HEPARIN SODIUM - IV 2,000 UNITS/2 ML VIAL IV FLUSH PRN (18:15)
[2017-11-24] MEDS ORDERED: KETAMINE HCL 500 MG/10 ML VIAL ONE (18:18)
[2017-11-24] MEDS ORDERED: DO NOT ADM ANY ANTICOAGULANT DRUGS PRN (19:23)
--- NOTE | 2017-11-24 20:34 | RADRPT ---
EXAM DATE/TIME: 11/24/2017 19:48 [place] COMPARISON: No previous studies available for comparison. INDICATIONS : Left leg pain. MEDICAL HISTORY : Hypertension. Glasses. Dyspnea. Renal disease. Renal failure. Anxiety. Depression. SURGICAL HISTORY : Tubal ligation. Dialysis port. ENCOUNTER: Initial ACUITY: 2 day PAIN SCORE: 5/10 LOCATION: Left leg. TECHNIQUE: Venous ultrasound of the leg was performed from the inguinal ligament to the proximal calf. Real-holly e, color Doppler and spectral tracing, compression and augmentation techniques were used. FINDINGS: There is normal compressibility of the deep venous system from the inguinal region to the proximal ca lf. No echogenic clot is seen in the lumen of the common femoral, femoral, popliteal, and posterior tibial veins. There is a normal response of the venous system to proximal and distal augmentation an d respiration. CONCLUSION: Normal examination. Dung May MD on November 24, 2017 at 20:32 Board Certified Radiologist. This report was verified electronically.
[2017-11-24] MEDS ORDERED: LABETALOL HCL 100 MG/20 ML VIAL IV PUSH PRN (20:45)
[2017-11-24 21:30] VITALS: BP 165/80; PULSE 100; RESP 19; TEMP 99; O2SAT 97
[2017-11-24] MEDS: traZODone HCL 50 MG TAB PO SCH (22:10)
[2017-11-24] MEDS: DOCUSATE SODIUM 50 MG/SENNA 8.6 MG TAB PO SCH (22:10)
[2017-11-24] MEDS: MICAFUNGIN INJ 100 MG in SODIUM CHLORIDE 0.9% INJ 100 ML IV SCH (22:10)
[2017-11-24] MEDS: SODIUM CHLORIDE 0.9% FLUSH 10 ML FLUSH IV FLUSH SCH (22:10)
[2017-11-24] MEDS ORDERED: MORPHINE SULFATE 2 MG/ML SYRINGE IV PUSH PRN (22:30)
[2017-11-24] MEDS ORDERED: cloNIDine HCL 0.1 MG TAB PO PRN (22:30)
[2017-11-24] MEDS ORDERED: BROMPHENIR/PSEUDOEPH/DEXTROM SYRUP 5 ML CUP PO PRN (22:30)
[2017-11-24] MEDS ORDERED: ACETAMINOPHEN/HYDROcodone 325 MG/5 MG TAB PO PRN (22:30)
[2017-11-24] MEDS: ACETAMINOPHEN/HYDROcodone 325 MG/7.5 MG TAB PO PRN (22:46)
[2017-11-24] MEDS ORDERED: DEXTROMETHORPHAN SYRUP 7.5MG/5ML UDC PO PRN (23:15)
[2017-11-24] MEDS: PHENYLEPHRINE 2.5 MG/BROMPHENIRAMINE 1 MG PER 5 ML UDC PO PRN (23:51)
[2017-11-25] VITALS (9 sets, daily range): BP systolic 147–159; BP diastolic 76–92; PULSE 88–100; RESP 18–22; TEMP 98.3–100.3; O2SAT 91–99
[2017-11-25] MEDS: LEVOTHYROXINE SODIUM 100 MCG TAB PO SCH (05:29)
[2017-11-25] MEDS: ACETAMINOPHEN/HYDROcodone 325 MG/7.5 MG TAB PO PRN ×2 (05:29→12:40)
[2017-11-25] MEDS: PHENYLEPHRINE 2.5 MG/BROMPHENIRAMINE 1 MG PER 5 ML UDC PO PRN ×3 (06:36→21:57)
[2017-11-25 07:22] LABS: AUTOMATED NEUTROPHIL # 4.9 TH/MM3 (1.8-7.7); BASOPHIL % 0.6 % (0.0-2.0); EOSINOPHIL # 0.4 TH/MM3 (0-0.4); EOSINOPHIL % 5.3 % (0.0-4.0); HEMATOCRIT 26.5 % (35.0-46.0); LYMPH % 10.2 % (9.0-44.0); LYMPHOCYTE # 0.7 TH/MM3 (1.0-4.8); MEAN CELL VOLUME 88.8 FL (80.0-100.0); MEAN CORPUSCULAR HEMOGLOBIN 30.2 PG (27.0-34.0); MONO % 9.9 % (0.0-8.0); MONOCYTE # 0.7 TH/MM3 (0-0.9); PLATELET COUNT 238 TH/MM3 (150-450); RED BLOOD COUNT 2.99 MIL/MM3 (4.00-5.30); RED CELL DISTRIBUTION WIDTH 12.8 % (11.6-17.2); WHITE BLOOD COUNT 6.6 TH/MM3 (4.0-11.0)
[2017-11-25 07:45] LABS: ALBUMIN 2.1 GM/DL (3.4-5.0); AST (GOT) 25 U/L (15-37); BICARBONATE 24.6 MEQ/L (21.0-32.0); BLOOD UREA NITROGEN 43 MG/DL (7-18); CALCIUM 8.1 MG/DL (8.5-10.1); CHLORIDE 107 MEQ/L (98-107); GLUCOSE,RANDOM 82 MG/DL (74-106); SODIUM (NA) 142 MEQ/L (136-145)
[2017-11-25 07:48] LABS: ALKALINE PHOSPHATASE 46 U/L (45-117); ALT (GPT) 7 U/L (10-53); CREATININE 8.97 MG/DL (0.50-1.00); GLOMERULAR FILTRATION RATE 5 ML/MIN (>89); TOTAL BILIRUBIN ADULT 0.3 MG/DL (0.2-1.0); TOTAL PROTEIN 5.9 GM/DL (6.4-8.2)
[2017-11-25] MEDS: FUROSEMIDE 80 MG TAB PO SCH (09:10)
[2017-11-25] MEDS: DOCUSATE SODIUM 50 MG/SENNA 8.6 MG TAB PO SCH ×2 (09:10→21:58)
[2017-11-25] MEDS: SEVELAMER CARBONATE 800 MG TAB PO SCH ×3 (09:11→17:40)
[2017-11-25] MEDS: VENLAFAXINE HCL XR 37.5 MG CAP PO SCH (09:11)
[2017-11-25] MEDS: SODIUM CHLORIDE 0.9% FLUSH 10 ML FLUSH IV FLUSH SCH ×2 (09:12→21:59)
--- NOTE | 2017-11-25 10:27 | HHI.FPPN ---
Subjective Remarks Agnieszka Montez is a 52yo lady with h/o ESRD previously on peritoneal dialysis admitted for peritonitis, with peritoneal fluid cultures growing yeast ( collected and sent from her dialysis facility). This note is written in conjunction with resident H&P dated 11/24/17. This morning, pt reports some soreness in her abdomen, at surgical site from removal of dialysis catheter (She is POD#1 from peritoneal dialysis catheter removal). She has a cough, which is improved with Dimetapp. She continues to also have some nasal congestion. She reports urine output has improved since having dialysis catheter removed. She anticipates getting hemodialysis today. ROS: Per resident H&P dated 11/24/17. PMH/PSxH/SocHx/FamHx: Per resident H&P dated 11/24/17. Significant for ESRD, recently treated with peritoneal dialysis. HTN, hypothyroidism. Objective Vitals Vital Signs Date Time Temp Pulse Resp B/P (MAP) Pulse Ox O2 Delivery O2 Flow Rate FiO2 11/25/17 10:02 94 11/25/17 08:31 98.5 90 18 153/80 (104) 91 11/25/17 06:36 18 11/25/17 04:15 98.3 88 22 147/88 (107) 98 11/25/17 00:00 98.8 89 20 150/76 (100) 98 11/24/17 21:30 99.0 100 19 165/80 (108) 97 11/24/17 20:00 99.6 93 17 135/71 (92) 94 Room Air 11/24/17 19:45 103 29 136/73 (94) 98 Room Air 11/24/17 19:30 107 28 134/66 (88) 97 Nasal Cannula 2 11/24/17 19:24 110 19 127/63 (84) 97 Nasal Cannula 2 11/24/17 19:23 97.5 111 22 118/65 (82) 100 Simple Mask 10 11/24/17 16:25 (120) 11/24/17 16:08 96 185/88 (120) 11/24/17 14:38 98.9 93 20 190/91 (124) 98 Room Air 11/24/17 13:11 (141) Room Air 11/24/17 13:09 98 21 220/102 (141) 96 Room Air 11/24/17 12:43 99.5 107 18 150/90 (110) 97 I/O 11/24/17 11/24/17 11/24/17 11/25/17 11/25/17 11/25/17 07:00 15:00 23:00 07:00 15:00 23:00 Intake Total 850 ml 100 ml Output Total 1110 ml 0 ml Balance -260 ml 100 ml Intake Oral 0 ml 0 ml IV Total 450 ml 100 ml Other 400 ml Output Urine Total 0 ml 0 ml Drainage Total 1100 ml Estimated Blood Loss 10 ml # Voids 2 # Bowel Movements 0 0 Result Diagram: 11/25/17 0620 11/25/17 0620 Objective Remarks Per resident H&P dated 11/24/17. Significant for: in NAD, nontoxic. No resp distress. Sitting comfortably in bed. CTAB, no crackles, no wheezes. R chest with vascular access for dialysis. Lower abdomen with bandage covering surgical site. There is some blood noted on the underside of the bandage, slightly larger than original border marking of blood. Abdomen tender, but appropriately so postop. Trace bilateral lower extremity edema. No calf tenderness. A/P Assessment and Plan Patient is a 52 year old female with a past medical history significant of ESRD and HTN who presents to the ED following positive peritoneal fluid cultures per nephrology. Admitted for PD catheter removal, VasCath placement to allow for HD and anti-fungal therapy. Attending Attestation The patient has been seen and examined. The chart and all resident notes have been reviewed. I agree that inpatient care is appropriate and that a two midnight stay is expected for the reasons documented in the resident history and physical. I have discussed this with the resident and certify the resident s order for inpatient admission. Problem List: (1) Peritonitis due to infected peritoneal dialysis catheter ICD Codes: T85.71XA - Infection and inflammatory reaction due to peritoneal dialysis catheter, initial encounter; K65.9 - Peritonitis, unspecified Status: Acute Plan: Patient with history of ESRD on peritoneal dialysis. Peritoneal fluid cultured on Monday, growing yeast per nephrology. Records have been requested. POD #1 (11/24/17) from peritoneal dialysis catheter removal. Appreciate Dr Kellie VEE consulted. Awaiting recommendations. Medications: * In ED, Fluconazole 400mg IV once. * Micafungin 100mg IV daily. * 11/24/17--> (2) ESRD (end stage renal disease) ICD Codes: N18.6 - End stage renal disease Status: Chronic Plan: Patient with history of ESRD, diagnosed two years ago. She previously had peritoneal dialysis daily at home. She was placed on transplant list . * VasCath placed by IR for HD 11/24. * Dialysis per nephrology. (3) Hypertension ICD Codes: I10 - Essential (primary) hypertension Status: Chronic Plan: Patient with history of hypertension. Blood pressure mildly elevated in hospital; anticipate improvement with hemodialysis. * Continue home meds. * Labetalol 10mg IV q6hr PRN SBP >=170 or DBP >=100. Hold for HR<=60. (4) Lower extremity edema ICD Codes: R60.0 - Localized edema Status: Resolved Plan: Left sided lower extremity edema and calf pain, present at admission. * US Doppler left lower extremity to rule out DVT. (5) Hypothyroidism ICD Codes: E03.9 - Hypothyroidism, unspecified Status: Chronic Plan: Continue home synthroid. (6) Depression ICD Codes: F32.9 - Major depressive disorder, single episode, unspecified Status: Chronic Plan: Stable. Continue home medications. (7) Fluid, Electrolyte, Nutrition and Prophylaxis Status: Acute Plan: Fluid: * Tolerating PO. Electrolyte: * Monitor and replete as necessary. Nutrition: * Renal diet Prophylaxis: * SCD. * Chemoprophylaxis had been held in anticipation of procedure/surgery; start heparin when it is stable from a postoperative perspective. Problem Qualifiers (1) Peritonitis due to infected peritoneal dialysis catheter: Qualified Codes: T85.71XD - Infection and inflammatory reaction due to peritoneal dialysis catheter, subsequent encounter; K65.9 - Peritonitis, unspecified (2) Hypertension: Qualified Codes: I10 - Essential (primary) hypertension (3) Hypothyroidism: Qualified Codes: E03.9 - Hypothyroidism, unspecified (4) Depression: Angelica Khan MD Nov 25, 2017 10:27
--- NOTE | 2017-11-25 10:38 | HHI.NPPN ---
Subjective Interval History patient with fungal peritonitis. PD catheter removed. HD today. Objective Data Data Vital Signs Date Time Temp Pulse Resp B/P (MAP) Pulse Ox O2 Delivery O2 Flow Rate FiO2 11/25/17 10:02 94 11/25/17 08:31 98.5 90 18 153/80 (104) 91 11/25/17 06:36 18 11/25/17 04:15 98.3 88 22 147/88 (107) 98 11/25/17 00:00 98.8 89 20 150/76 (100) 98 11/24/17 21:30 99.0 100 19 165/80 (108) 97 11/24/17 20:00 99.6 93 17 135/71 (92) 94 Room Air 11/24/17 19:45 103 29 136/73 (94) 98 Room Air 11/24/17 19:30 107 28 134/66 (88) 97 Nasal Cannula 2 11/24/17 19:24 110 19 127/63 (84) 97 Nasal Cannula 2 11/24/17 19:23 97.5 111 22 118/65 (82) 100 Simple Mask 10 11/24/17 16:25 (120) 11/24/17 16:08 96 185/88 (120) 11/24/17 14:38 98.9 93 20 190/91 (124) 98 Room Air 11/24/17 13:11 (141) Room Air 11/24/17 13:09 98 21 220/102 (141) 96 Room Air 11/24/17 12:43 99.5 107 18 150/90 (110) 97 -: 11/25/17 0620 11/25/17 0620 Microbiology 11/24/17 Aerobic Blood Culture, Received Pending 11/24/17 Anaerobic Blood Culture, Received Pending 11/24/17 Aerobic Blood Culture, Received Pending 11/24/17 Anaerobic Blood Culture, Received Pending 11/24/17 Fungal Smear, Received Pending 11/24/17 Fungal Culture, Received Pending 11/24/17 Gram Stain, Received Pending 11/24/17 Body Fluid Culture, Received Pending 11/24/17 Fungal Smear, Received Pending 11/24/17 Fungal Culture, Received Pending 11/24/17 Acid Fast Stain, Received Pending 11/24/17 Mycobacterial Culture, Received Pending 11/24/17 Gram Stain, Received Pending 11/24/17 Wound Culture, Received Pending Assessment/Plan Problem List: (1) Peritonitis due to infected peritoneal dialysis catheter ICD Codes: T85.71XA - Infection and inflammatory reaction due to peritoneal dialysis catheter, initial encounter; K65.9 - Peritonitis, unspecified Status: Acute Plan: HD today. PD catheter removed. ID on the case. On Diflucan. (2) ESRD (end stage renal disease) ICD Codes: N18.6 - End stage renal disease Status: Chronic Plan: Convert temporarily on hemodialysis she is being treated for fungal peritonitis (3) Hypertension ICD Codes: I10 - Essential (primary) hypertension Status: Chronic Plan: Continue to monitor Problem Qualifiers (1) Hypertension: Qualified Codes: I10 - Essential (primary) hypertension David Roman MD Nov 25, 2017 10:38
--- NOTE | 2017-11-25 16:17 | PD.CAR.PN ---
CVT Progress Note Subjective/Hospital Course: 11/25/17 PD cath removed. Incisions clean dry Abdomen soft Nothing to add to care from surgical point Objective: Vital Signs Date Time Temp Pulse Resp B/P (MAP) Pulse Ox O2 Delivery O2 Flow Rate FiO2 11/25/17 12:25 99.2 95 18 152/79 (103) 95 11/25/17 10:02 94 11/25/17 08:31 98.5 90 18 153/80 (104) 91 11/25/17 06:36 18 11/25/17 04:15 98.3 88 22 147/88 (107) 98 11/25/17 00:00 98.8 89 20 150/76 (100) 98 11/24/17 21:30 99.0 100 19 165/80 (108) 97 11/24/17 20:00 99.6 93 17 135/71 (92) 94 Room Air 11/24/17 19:45 103 29 136/73 (94) 98 Room Air 11/24/17 19:30 107 28 134/66 (88) 97 Nasal Cannula 2 11/24/17 19:24 110 19 127/63 (84) 97 Nasal Cannula 2 11/24/17 19:23 97.5 111 22 118/65 (82) 100 Simple Mask 10 11/24/17 16:25 (120) Labs: Laboratory Tests Test 11/25/17 06:20 White Blood Count 6.6 TH/MM3 (4.0-11.0) Red Blood Count 2.99 MIL/MM3 (4.00-5.30) Hemoglobin 9.0 GM/DL (11.6-15.3) Hematocrit 26.5 % (35.0-46.0) Mean Corpuscular Volume 88.8 FL (80.0-100.0) Mean Corpuscular Hemoglobin 30.2 PG (27.0-34.0) Mean Corpuscular Hemoglobin Concent 34.0 % (32.0-36.0) Red Cell Distribution Width 12.8 % (11.6-17.2) Platelet Count 238 TH/MM3 (150-450) Mean Platelet Volume 8.0 FL (7.0-11.0) Neutrophils (%) (Auto) 74.0 % (16.0-70.0) Lymphocytes (%) (Auto) 10.2 % (9.0-44.0) Monocytes (%) (Auto) 9.9 % (0.0-8.0) Eosinophils (%) (Auto) 5.3 % (0.0-4.0) Basophils (%) (Auto) 0.6 % (0.0-2.0) Neutrophils # (Auto) 4.9 TH/MM3 (1.8-7.7) Lymphocytes # (Auto) 0.7 TH/MM3 (1.0-4.8) Monocytes # (Auto) 0.7 TH/MM3 (0-0.9) Eosinophils # (Auto) 0.4 TH/MM3 (0-0.4) Basophils # (Auto) 0.0 TH/MM3 (0-0.2) CBC Comment DIFF FINAL Differential Comment Blood Urea Nitrogen 43 MG/DL (7-18) Creatinine 8.97 MG/DL (0.50-1.00) Random Glucose 82 MG/DL (74-106) Total Protein 5.9 GM/DL (6.4-8.2) Albumin 2.1 GM/DL (3.4-5.0) Calcium Level 8.1 MG/DL (8.5-10.1) Alkaline Phosphatase 46 U/L (45-117) Aspartate Amino Transf (AST/SGOT) 25 U/L (15-37) Alanine Aminotransferase (ALT/SGPT) 7 U/L (10-53) Total Bilirubin 0.3 MG/DL (0.2-1.0) Sodium Level 142 MEQ/L (136-145) Potassium Level 3.9 MEQ/L (3.5-5.1) Chloride Level 107 MEQ/L (98-107) Carbon Dioxide Level 24.6 MEQ/L (21.0-32.0) Anion Gap 10 MEQ/L (5-15) Estimat Glomerular Filtration Rate 5 ML/MIN (>89) Result Diagram: 11/25/1720 11/25/1720 Terrence Solis MD Nov 25, 2017 16:17
--- NOTE | 2017-11-25 16:30 | EKG ---
Date Performed: 11/24/2017 Time Performed: 13:14:08 PTAGE: 52 years EKG: Sinus rhythm WITH SHORT TX INTERVAL BORDERLINE ECG NO PREVIOUS TRACING DOCTOR: Luana Moraes Interpretating Date/Time 11/25/2017 16:27:46
--- NOTE | 2017-11-25 18:07 | PD.ID.CON ---
History of Present Illness Service ID Consult Requested By Dr Mcmanus Reason for Consult fungal peritonitis Primary Care Physician [facility] Diagnoses: History of Present Illness 52 yo F with h/o ESRD/ on transplant list/ PD dialysis wasw doing OK untill 1-2 weeks ago when she noted abdominal cramping, cloudiness of PD fluid , some low fgrade fevers Initially statrtted on fortaz/vanco IP, but later clx grew out yeast She was started on micafungin PD cath was removed and Permacath was placed Pt was adviced to stay on HD from now on /2 her transplant planned Pt has low grade fever and no leukocytosis She feels better UOP improved Review of Systems Except as stated in HPI: all other systems reviewed are Neg Past Family Social History Allergies: Coded Allergies: adhesive (Unverified Allergy, Intermediate, Rash, 04/13/17) May be due to duration of exposure doxycycline (Unverified Allergy, Intermediate, Tongue Swelling, Hives, ) erythromycin base (Unverified Allergy, Intermediate, Tongue Swelling, Hives, 04/13/17) minocycline (Unverified Allergy, Intermediate, Tongue Swelling, Hives, ) penicillin G (Unverified Allergy, Intermediate, Tongue Swelling, Hives, ) tigecycline (Unverified Allergy, Intermediate, Tongue Swelling, Hives, ) tetracycline (Verified Allergy, Mild, HIVES, 11/24/17) lactose (Unverified Adverse Reaction, Intermediate, 04/13/17) Past Medical History ESRD Hypertension Hypothyroidism Depression Secondary hyperparathyroidism Past Surgical History Tubal ligation Tenckhoff catheter insertion Active Ordered Medications Medications where reviewed in EMR Antibiotics Include: micafungin Family History reviewed Non-Contributory to curretn ID problem Social History remote Tobacco. No ETOH. No Illicit Drugs. Physical Exam Vital Signs Vital Signs Date Time Temp Pulse Resp B/P (MAP) Pulse Ox O2 Delivery O2 Flow Rate FiO2 11/25/17 12:25 99.2 95 18 152/79 (103) 95 11/25/17 10:02 94 11/25/17 08:31 98.5 90 18 153/80 (104) 91 11/25/17 06:36 18 11/25/17 04:15 98.3 88 22 147/88 (107) 98 11/25/17 00:00 98.8 89 20 150/76 (100) 98 11/24/17 21:30 99.0 100 19 165/80 (108) 97 11/24/17 20:00 99.6 93 17 135/71 (92) 94 Room Air 11/24/17 19:45 103 29 136/73 (94) 98 Room Air 11/24/17 19:30 107 28 134/66 (88) 97 Nasal Cannula 2 11/24/17 19:24 110 19 127/63 (84) 97 Nasal Cannula 2 11/24/17 19:23 97.5 111 22 118/65 (82) 100 Simple Mask 10 Physical Exam CONSTITUTIONAL/GENERAL: This is an adequately nourished patient, in no apparent distress. TUBES/LINES/DRAINS: Permacth i place R chest SKIN: No jaundice, rashes, or lesions. Ecchymoses on upper extremities. No wounds seen anteriorly. Skin temperature appropriate. Not diaphoretic. HEAD: Atraumatic. Normocephalic. EYES: Pupils equal and round and reactive. Extraocular motions intact. No scleral icterus. No injection or drainage. Fundi not examined. ENT: Hearing grossly normal. Nose without bleeding or purulent drainage. Throat without visible erythema, exudates, masses, or lesions. NECK: Trachea midline. Supple, nontender. No palpable thyroid enlargement or nodularity. CARDIOVASCULAR: Regular rate and rhythm without murmurs, gallops, or rubs. No JVD. Peripheral pulses symmetric. RESPIRATORY/CHEST: Symmetric, unlabored respirations. Clear to auscultation. Breath sounds equal bilaterally. No wheezes, rales, or rhonchi. GASTROINTESTINAL: Abdomen soft, non-tender, nondistended. No hepato-splenomegaly , or palpable masses. No guarding. Bowel sounds present. Previous Tenckoff site - OK, dressing in place GENITOURINARY: Without palpable bladder distension. MUSCULOSKELETAL: Extremities without clubbing, cyanosis, or edema. No joint tenderness or effusion noted. No calf tenderness. No mottling or clubbing. LYMPHATICS: No palpable cervical or supraclavicular adenopathy. NEUROLOGICAL: Awake and alert. Motor and sensory grossly within normal limits. Follows commands. Cognitively sharp. Moves all extremities. PSYCHIATRIC: No obvious anxiety/depression. no apparent hallucinations or other psychotic thought process. Laboratory Laboratory Tests Test 11/25/17 06:20 White Blood Count 6.6 Red Blood Count 2.99 Hemoglobin 9.0 Hematocrit 26.5 Mean Corpuscular Volume 88.8 Mean Corpuscular Hemoglobin 30.2 Mean Corpuscular Hemoglobin Concent 34.0 Red Cell Distribution Width 12.8 Platelet Count 238 Mean Platelet Volume 8.0 Neutrophils (%) (Auto) 74.0 Lymphocytes (%) (Auto) 10.2 Monocytes (%) (Auto) 9.9 Eosinophils (%) (Auto) 5.3 Basophils (%) (Auto) 0.6 Neutrophils # (Auto) 4.9 Lymphocytes # (Auto) 0.7 Monocytes # (Auto) 0.7 Eosinophils # (Auto) 0.4 Basophils # (Auto) 0.0 CBC Comment DIFF FINAL Differential Comment Blood Urea Nitrogen 43 Creatinine 8.97 Random Glucose 82 Total Protein 5.9 Albumin 2.1 Calcium Level 8.1 Alkaline Phosphatase 46 Aspartate Amino Transf (AST/SGOT) 25 Alanine Aminotransferase (ALT/SGPT) 7 Total Bilirubin 0.3 Sodium Level 142 Potassium Level 3.9 Chloride Level 107 Carbon Dioxide Level 24.6 Anion Gap 10 Estimat Glomerular Filtration Rate 5 Date/Time Source Procedure Growth Status 11/24/17 14:50 Blood Line Aerobic Blood Culture - Preliminary NO GROWTH IN 1 DAY Resulted 11/24/17 14:50 Blood Line Anaerobic Blood Culture - Preliminary NO GROWTH IN 1 DAY Resulted 11/24/17 16:10 Fluid Peritoneal Fluid Fungal Smear - Final NO FUNGAL ELEMENTS SEEN. Resulted 11/24/17 16:10 Fluid Peritoneal Fluid Fungal Culture Pending Resulted 11/24/17 19:04 Wound Other Fungal Smear - Final NO FUNGAL ELEMENTS SEEN. Resulted 11/24/17 19:04 Wound Other Fungal Culture Pending Resulted Result Diagram: 11/25/17 0620 11/25/17 0620 Imaging Last Impressions Lower Extremity Ultrasound 11/24/17 0000 Signed Impressions: Service Date/Time: Friday, November 24, 2017 19:48 - CONCLUSION: Normal examination. Dung May MD Chest X-Ray 11/24/17 0000 Signed Impressions: Service Date/Time: Friday, November 24, 2017 13:47 - CONCLUSION: 1. No acute cardiopulmonary disease. Kale Wyatt MD Assessment and Plan Assessment and Plan Candidal peritonitis aw PD catheter ESRD sp removal of Tenkoff pt is now on HD cont micafungin will need final ID on the yeast - plan to dw Dr Eduard Perry,Fauzia Arellano MD Nov 25, 2017 18:07
[2017-11-25] MEDS: MICAFUNGIN INJ 100 MG in SODIUM CHLORIDE 0.9% INJ 100 ML IV SCH (21:57)
[2017-11-25] MEDS: ACETAMINOPHEN 325 MG TAB PO PRN (21:58)
[2017-11-25] MEDS: traZODone HCL 50 MG TAB PO SCH (21:58)
[2017-11-26] VITALS (7 sets, daily range): BP systolic 125–156; BP diastolic 61–83; PULSE 88–99; RESP 18; TEMP 98.6–99.1; O2SAT 91–96
--- NOTE | 2017-11-26 04:10 | RADRPT ---
EXAM DATE/TIME: 11/24/2017 17:17 [facility] COMPARISON: No previous studies available for comparison. INDICATIONS : Patient presents with non functioning peritoneal catheter in need of a perm cath. MEDICAL HISTORY : ESRD HTN Depression SURGICAL HISTORY : PD cath placement Port placement Tubal ligation ENCOUNTER: Initial ACUITY: 2 days PAIN SCORE: 9/10 LOCATION: Abdomen from coughing FLUORO TIME: 0.2 minutes IMAGE SERIES: 1 SEDATION TIME: 10 minutes ACCESS: Right internal jugular vein SEDATION: 1.) 100 mcg fentanyl (Sublimaze) IV Prophylactic antibiotics were administered with appropriate pre-procedure timing. Vancomycin within 2 hours of procedure, Ancef (or alternative) within 1 hour of procedure. DEVICE: 1. 15 [place] dual lumen 19 cm Wolf II Plus catheter PROCEDURE : 1. Ultrasound-guided venipuncture. 2. PermaCath placement. 3. Conscious sedation with continuous EKG and oximetry monitoring. The risks, benefits and alternatives to the procedure were explained and verbal and written consent w as obtained. The site was prepped in sterile fashion. Full sterile technique was used, including ca p, mask, sterile gloves and gown and a large sterile sheet. Hand hygiene and 2% chlorhexidine and/or betadine/alcohol prep was utilized per protocol for cutaneous antisepsis. Sterile gel and sterile p robe cover were utilized for ultrasound guidance. The skin and subcutaneous tissues were infiltrated with local anesthetic solution. With ultrasound and fluoroscopic guidance a dermatotomy was created over the prescribed vein. A micr opuncture set was used to access the targeted vein and serial dilatation was performed to accept the prescribed length catheter. A subcutaneous tunnel was created in a retrograde fashion the catheter w as pulled through the tunnel. The catheter was flushed and assembled and locked with heparin. The c atheter was sutured in place. Conscious sedation was performed with the prescribed dosages and duration as above in the presence of an independent trained radiology nurse to assist in the monitoring of the patient. EKG and oximetry remained stable throughout the procedure. The patient tolerated the procedure well and there were n o complications. The patient was sent to post anesthesia recovery in stable condition. CONCLUSION: Uncomplicated PermaCath placement as above. Kale Wyatt MD on November 26, 2017 at 4:08 Board Certified Radiologist. This report was verified electronically.
[2017-11-26] MEDS: LEVOTHYROXINE SODIUM 100 MCG TAB PO SCH (06:22)
[2017-11-26] MEDS: HEPARIN SODIUM - SQ 10,000 UNITS/ML VIAL SQ SCH ×3 (06:22→21:17)
[2017-11-26 08:07] LABS: AUTOMATED NEUTROPHIL # 4.5 TH/MM3 (1.8-7.7); BASOPHIL % 0.7 % (0.0-2.0); EOSINOPHIL # 0.6 TH/MM3 (0-0.4); EOSINOPHIL % 8.4 % (0.0-4.0); HEMATOCRIT 27.2 % (35.0-46.0); HEMOGLOBIN 9.4 GM/DL (11.6-15.3); LYMPHOCYTE # 0.9 TH/MM3 (1.0-4.8); MEAN CELL VOLUME 88.8 FL (80.0-100.0); MEAN CORPUSCULAR HEMOGLOBIN 30.6 PG (27.0-34.0); MEAN CORPUSCULAR HGB CONC 34.5 % (32.0-36.0); MONO % 10.3 % (0.0-8.0); MONOCYTE # 0.7 TH/MM3 (0-0.9); NEUT % 66.6 % (16.0-70.0); PLATELET COUNT 225 TH/MM3 (150-450); RED BLOOD COUNT 3.06 MIL/MM3 (4.00-5.30); WHITE BLOOD COUNT 6.7 TH/MM3 (4.0-11.0)
[2017-11-26 08:38] LABS: ALBUMIN 2.1 GM/DL (3.4-5.0); ALKALINE PHOSPHATASE 47 U/L (45-117); ALT (GPT) 7 U/L (10-53); AST (GOT) 29 U/L (15-37); BICARBONATE 26.4 MEQ/L (21.0-32.0); BLOOD UREA NITROGEN 30 MG/DL (7-18); CALCIUM 8.4 MG/DL (8.5-10.1); CHLORIDE 104 MEQ/L (98-107); CREATININE 7.34 MG/DL (0.50-1.00); GLOMERULAR FILTRATION RATE 6 ML/MIN (>89); GLUCOSE,RANDOM 82 MG/DL (74-106); SODIUM (NA) 140 MEQ/L (136-145); TOTAL BILIRUBIN ADULT 0.3 MG/DL (0.2-1.0); TOTAL PROTEIN 6.3 GM/DL (6.4-8.2)
[2017-11-26] MEDS: VENLAFAXINE HCL XR 37.5 MG CAP PO SCH (08:53)
[2017-11-26] MEDS: FUROSEMIDE 80 MG TAB PO SCH (08:53)
[2017-11-26] MEDS: DOCUSATE SODIUM 50 MG/SENNA 8.6 MG TAB PO SCH ×2 (08:54→21:17)
[2017-11-26] MEDS: SEVELAMER CARBONATE 800 MG TAB PO SCH ×3 (08:54→19:39)
[2017-11-26] MEDS: SODIUM CHLORIDE 0.9% FLUSH 10 ML FLUSH IV FLUSH SCH ×2 (08:55→21:17)
[2017-11-26] MEDS: ACETAMINOPHEN 325 MG TAB PO PRN (09:02)
--- NOTE | 2017-11-26 12:48 | HHI.NPPN ---
Subjective Interval History Had dialysis yesterday. Next hemodialysis will be tomorrow. Objective Data Data Vital Signs Date Time Temp Pulse Resp B/P (MAP) Pulse Ox O2 Delivery O2 Flow Rate FiO2 11/26/17 12:27 98.6 90 18 129/72 (91) 92 11/26/17 08:23 99.1 93 18 156/72 (100) 91 11/26/17 05:34 98.7 90 18 150/79 (102) 93 11/26/17 00:30 99.0 88 18 125/61 (82) 93 11/25/17 23:39 18 11/25/17 21:50 100.3 11/25/17 21:32 99 21 11/25/17 20:52 99.6 100 18 159/92 (114) 99 -: 11/26/17 0640 11/26/17 0640 Physical Exam General Appearance: Well Developed, No Acute Distress Neck Neck Exam: Neck Supple Pulmonary Resp Exam: Clear Bilaterally Cardiology CV Exam: Regular, Normal Sinus Rhythm Gastrointestinal/Abdomen GI Exam: Soft, Non-Tender Assessment/Plan Problem List: (1) Peritonitis due to infected peritoneal dialysis catheter ICD Codes: T85.71XA - Infection and inflammatory reaction due to peritoneal dialysis catheter, initial encounter; K65.9 - Peritonitis, unspecified Status: Acute Plan: HD tomorrow PD catheter removed. ID on the case. On Diflucan. Discussed with Dr. Perry: final identification is awaited. (2) ESRD (end stage renal disease) ICD Codes: N18.6 - End stage renal disease Status: Chronic Plan: Convert temporarily on hemodialysis she is being treated for fungal peritonitis (3) Hypertension ICD Codes: I10 - Essential (primary) hypertension Status: Chronic Plan: Continue to monitor Problem Qualifiers (1) Peritonitis due to infected peritoneal dialysis catheter: Qualified Codes: T85.71XD - Infection and inflammatory reaction due to peritoneal dialysis catheter, subsequent encounter; K65.9 - Peritonitis, unspecified (2) Hypertension: Qualified Codes: I10 - Essential (primary) hypertension David Roman MD Nov 26, 2017 12:48
--- NOTE | 2017-11-26 14:01 | HHI.IDPN ---
Subjective Subjective Remarks doing OK afebrile c o some disconmfort in the abd wall where she had tencoff Antibiotics micafungin Allergies: Coded Allergies: adhesive (Unverified Allergy, Intermediate, Rash, 04/13/17) May be due to duration of exposure doxycycline (Unverified Allergy, Intermediate, Tongue Swelling, Hives, ) erythromycin base (Unverified Allergy, Intermediate, Tongue Swelling, Hives, 04/13/17) minocycline (Unverified Allergy, Intermediate, Tongue Swelling, Hives, ) penicillin G (Unverified Allergy, Intermediate, Tongue Swelling, Hives, ) tigecycline (Unverified Allergy, Intermediate, Tongue Swelling, Hives, ) tetracycline (Verified Allergy, Mild, HIVES, 11/24/17) lactose (Unverified Adverse Reaction, Intermediate, 04/13/17) Objective . Vital Signs Date Time Temp Pulse Resp B/P (MAP) Pulse Ox O2 Delivery O2 Flow Rate FiO2 11/26/17 12:27 98.6 90 18 129/72 (91) 92 11/26/17 08:23 99.1 93 18 156/72 (100) 91 11/26/17 05:34 98.7 90 18 150/79 (102) 93 11/26/17 00:30 99.0 88 18 125/61 (82) 93 11/25/17 23:39 18 11/25/17 21:50 100.3 11/25/17 21:32 99 21 11/25/17 20:52 99.6 100 18 159/92 (114) 99 . Laboratory Tests Test 11/25/17 06:20 11/26/17 06:40 White Blood Count 6.6 TH/MM3 6.7 TH/MM3 Red Blood Count 2.99 MIL/MM3 3.06 MIL/MM3 Hemoglobin 9.0 GM/DL 9.4 GM/DL Hematocrit 26.5 % 27.2 % Mean Corpuscular Volume 88.8 FL 88.8 FL Mean Corpuscular Hemoglobin 30.2 PG 30.6 PG Mean Corpuscular Hemoglobin Concent 34.0 % 34.5 % Red Cell Distribution Width 12.8 % 13.0 % Platelet Count 238 TH/MM3 225 TH/MM3 Mean Platelet Volume 8.0 FL 8.0 FL Neutrophils (%) (Auto) 74.0 % 66.6 % Lymphocytes (%) (Auto) 10.2 % 14.0 % Monocytes (%) (Auto) 9.9 % 10.3 % Eosinophils (%) (Auto) 5.3 % 8.4 % Basophils (%) (Auto) 0.6 % 0.7 % Neutrophils # (Auto) 4.9 TH/MM3 4.5 TH/MM3 Lymphocytes # (Auto) 0.7 TH/MM3 0.9 TH/MM3 Monocytes # (Auto) 0.7 TH/MM3 0.7 TH/MM3 Eosinophils # (Auto) 0.4 TH/MM3 0.6 TH/MM3 Basophils # (Auto) 0.0 TH/MM3 0.0 TH/MM3 CBC Comment DIFF FINAL DIFF FINAL Differential Comment Laboratory Tests Test 11/25/17 06:20 11/26/17 06:40 Blood Urea Nitrogen 43 MG/DL 30 MG/DL Creatinine 8.97 MG/DL 7.34 MG/DL Random Glucose 82 MG/DL 82 MG/DL Total Protein 5.9 GM/DL 6.3 GM/DL Albumin 2.1 GM/DL 2.1 GM/DL Calcium Level 8.1 MG/DL 8.4 MG/DL Alkaline Phosphatase 46 U/L 47 U/L Aspartate Amino Transf (AST/SGOT) 25 U/L 29 U/L Alanine Aminotransferase (ALT/SGPT) 7 U/L 7 U/L Total Bilirubin 0.3 MG/DL 0.3 MG/DL Sodium Level 142 MEQ/L 140 MEQ/L Potassium Level 3.9 MEQ/L 3.7 MEQ/L Chloride Level 107 MEQ/L 104 MEQ/L Carbon Dioxide Level 24.6 MEQ/L 26.4 MEQ/L Anion Gap 10 MEQ/L 10 MEQ/L Estimat Glomerular Filtration Rate 5 ML/MIN 6 ML/MIN Microbiology Date/Time Source Procedure Growth Status 11/24/17 14:50 Blood Line Aerobic Blood Culture - Preliminary NO GROWTH IN 2 DAYS Resulted 11/24/17 14:50 Blood Line Anaerobic Blood Culture - Preliminary NO GROWTH IN 2 DAYS Resulted 11/24/17 14:50 Blood Line Aerobic Blood Culture - Preliminary NO GROWTH IN 2 DAYS Resulted 11/24/17 14:50 Blood Line Anaerobic Blood Culture - Preliminary NO GROWTH IN 2 DAYS Resulted 11/24/17 16:10 Fluid Peritoneal Fluid Fungal Smear - Final NO FUNGAL ELEMENTS SEEN. Resulted 11/24/17 16:10 Fluid Peritoneal Fluid Fungal Culture Pending Resulted 11/24/17 16:10 Fluid Peritoneal Fluid Gram Stain - Final Resulted 11/24/17 16:10 Body Fluid Culture - Preliminary Yeast Species Resulted 11/24/17 19:04 Wound Other Fungal Smear - Final NO FUNGAL ELEMENTS SEEN. Resulted 11/24/17 19:04 Wound Other Fungal Culture Pending Resulted 11/24/17 19:04 Wound Other Acid Fast Stain Pending Received 11/24/17 19:04 Wound Other Mycobacterial Culture Pending Received 11/24/17 19:04 Wound Other Gram Stain - Final Resulted 11/24/17 19:04 Wound Culture - Preliminary Yeast Species Resulted Imaging Last Impressions Lower Extremity Ultrasound 11/24/17 0000 Signed Impressions: Service Date/Time: Friday, November 24, 2017 19:48 - CONCLUSION: Normal examination. Dung May MD Chest X-Ray 11/24/17 0000 Signed Impressions: Service Date/Time: Friday, November 24, 2017 13:47 - CONCLUSION: 1. No acute cardiopulmonary disease. Kale Wyatt MD Catheter Placement X-Ray 11/24/17 0000 Signed Impressions: Service Date/Time: Friday, November 24, 2017 17:17 - CONCLUSION: Uncomplicated PermaCath placement as above. Kale Wyatt MD Physical Exam CONSTITUTIONAL/GENERAL: This is an adequately nourished patient, in no apparent distress. TUBES/LINES/DRAINS: Permacth i place R chest RESPIRATORY/CHEST: Symmetric, unlabored respirations. Clear to auscultation. Breath sounds equal bilaterally. No wheezes, rales, or rhonchi. GASTROINTESTINAL: Abdomen soft, non-tender, nondistended. No hepato-splenomegaly , or palpable masses. No guarding. Bowel sounds present. Previous Tenckoff site - OKn stirry strips in place minimal serosang drainage Assessment & Plan Remarks Candidal peritonitis aw PD catheter - PD fluid growing yeast, no other org's ESRD sp removal of Tenkoff pt is now on HD cont micafungin will need final ID on the yeast - dw Dr Jenaro Perry,Fauzia Arellano MD Nov 26, 2017 14:01
--- NOTE | 2017-11-26 14:22 | HHI.FPPN ---
Subjective Remarks Patient seen and examined bedside today. Patient states she had no acute events overnight. She continues to have coughing since Monday. She thinks that her coughing is getting worse. She does not feel short of breath. She does not feel fever/chills. (Marbella Driscoll MD R2) Objective Vitals Vital Signs Date Time Temp Pulse Resp B/P (MAP) Pulse Ox O2 Delivery O2 Flow Rate FiO2 11/26/17 12:27 98.6 90 18 129/72 (91) 92 11/26/17 08:23 99.1 93 18 156/72 (100) 91 11/26/17 05:34 98.7 90 18 150/79 (102) 93 11/26/17 00:30 99.0 88 18 125/61 (82) 93 11/25/17 23:39 18 11/25/17 21:50 100.3 11/25/17 21:32 99 21 11/25/17 20:52 99.6 100 18 159/92 (114) 99 I/O 11/25/17 11/25/17 11/25/17 11/26/17 11/26/17 11/26/17 07:00 15:00 23:00 07:00 15:00 23:00 Intake Total 100 ml Output Total 0 ml 1500 ml Balance 100 ml -1500 ml Intake Oral 0 ml IV Total 100 ml Output Urine Total 0 ml Hemodialysis 1500 ml # Bowel Movements 0 (Marbella Driscoll MD R2) Result Diagram: 11/26/17 0640 11/26/17 0640 Objective Remarks GENERAL: In no acute distress. When sitting up for exam patient does go into a coughing fit. She is not in respiratory distress SKIN: Warm and dry. Vascular access placed. Bandage covering removal of PD catheter HEAD: Normocephalic. EYES: No scleral icterus. No injection or drainage. NECK: Supple, trachea midline. No JVD or lymphadenopathy. CARDIOVASCULAR: Regular rate and rhythm without murmurs, gallops, or rubs. RESPIRATORY: Breath sounds equal bilaterally. No accessory muscle use. GASTROINTESTINAL: Abdomen soft, non-tender, nondistended. Tenderness around site of PD catheter, no blood or drainage from bandage MUSCULOSKELETAL: No cyanosis, or edema. BACK: Nontender without obvious deformity. No CVA tenderness. (Marbella Driscoll MD R2) A/P Assessment and Plan Patient is a 52 year old female with a past medical history significant of ESRD and HTN who presents to the ED following positive peritoneal fluid cultures per nephrology. Admitted for PD catheter removal, VasCath placement to allow for HD and anti-fungal therapy. Discharge Planning Pending final identification of culture per ID recommendation (Marbella Driscoll MD R2) Attending Attestation Patient seen and examined, discussed with resident team. I agree with assessment and management as documented and discussed with me. Pt feels well, except for increasing productive cough. She denies chest pain, fever. Await ID/sensitivities on PD fluid cultures. Continue micafungin. Appreciate ID, nephrology. (Angelica Khan MD) Problem List: (1) Cough ICD Codes: R05 - Cough Status: Acute Plan: Cough 5 days, worsening, low-grade temperature last night of 100.3, associated with nausea Follow-up repeat chest x-ray Follow-up sputum culture Follow-up influenza Follow-up respiratory panel Continue Eula and david (2) Peritonitis due to infected peritoneal dialysis catheter ICD Codes: T85.71XA - Infection and inflammatory reaction due to peritoneal dialysis catheter, initial encounter; K65.9 - Peritonitis, unspecified Status: Acute Plan: Patient with history of ESRD on peritoneal dialysis. Peritoneal fluid cultured on Monday, growing yeast per nephrology. Records have been requested. POD #2 (11/24/17) from peritoneal dialysis catheter removal. Appreciate Dr Kellie VEE consulted. Recommends awaiting final culture Medications: * In ED, Fluconazole 400mg IV once. * Micafungin 100mg IV daily. * 11/24/17--> (3) ESRD (end stage renal disease) ICD Codes: N18.6 - End stage renal disease Status: Chronic Plan: Patient with history of ESRD, diagnosed two years ago. She previously had peritoneal dialysis daily at home. She was placed on transplant list . * VasCath placed by IR for HD 11/24. * Dialysis per nephrology. * Plan for hemodialysis tomorrow (4) Hypertension ICD Codes: I10 - Essential (primary) hypertension Status: Chronic Plan: Patient with history of hypertension. Blood pressure mildly elevated in hospital; anticipate improvement with hemodialysis. BPs have improved over the last 24 hours * Continue home meds. * Labetalol 10mg IV q6hr PRN SBP >=170 or DBP >=100. Hold for HR<=60. (5) Lower extremity edema ICD Codes: R60.0 - Localized edema Status: Resolved Plan: Left sided lower extremity edema and calf pain, present at admission. * US Doppler left lower extremity to rule out DVT. (6) Hypothyroidism ICD Codes: E03.9 - Hypothyroidism, unspecified Status: Chronic Plan: Continue home synthroid. (7) Depression ICD Codes: F32.9 - Major depressive disorder, single episode, unspecified Status: Chronic Plan: Stable. Continue home medications. (8) Fluid, Electrolyte, Nutrition and Prophylaxis Status: Acute Plan: Fluid: * Tolerating PO. Electrolyte: * Monitor and replete as necessary. Nutrition: * Renal diet Prophylaxis: * SCD. * Chemoprophylaxis: Heparin 5000 units 3 times daily (Marbella Driscoll MD R2) Problem Qualifiers (1) Peritonitis due to infected peritoneal dialysis catheter: Qualified Codes: T85.71XD - Infection and inflammatory reaction due to peritoneal dialysis catheter, subsequent encounter; K65.9 - Peritonitis, unspecified (2) Hypertension: Qualified Codes: I10 - Essential (primary) hypertension (3) Hypothyroidism: Qualified Codes: E03.9 - Hypothyroidism, unspecified (4) Depression: Marbella Driscoll MD R2 Nov 26, 2017 14:22 Angelica Khan MD Nov 28, 2017 06:42
--- NOTE | 2017-11-26 15:34 | RADRPT ---
EXAM DATE/TIME: 11/26/2017 14:30 [facility] COMPARISON: CHEST SINGLE AP, November 24, 2017, 13:47. INDICATIONS : Wheezing and shortness of breath. MEDICAL HISTORY : None. SURGICAL HISTORY : Port. ENCOUNTER: Subsequent ACUITY: 2 days PAIN SCORE: 0/10 LOCATION: Bilateral chest FINDINGS: Right-sided dialysis catheters present in satisfactory position. The lungs are focally clear. No effu pascual present. Cardiomediastinal contours are satisfactory. CONCLUSION: No acute disease Papo Richard MD on November 26, 2017 at 15:31 Board Certified Radiologist. This report was verified electronically.
[2017-11-26] MEDS: MICAFUNGIN INJ 100 MG in SODIUM CHLORIDE 0.9% INJ 100 ML IV SCH (21:16)
[2017-11-26] MEDS: traZODone HCL 50 MG TAB PO SCH (21:17)
[2017-11-26] MEDS: PHENYLEPHRINE 2.5 MG/BROMPHENIRAMINE 1 MG PER 5 ML UDC PO PRN (22:24)
[2017-11-27] VITALS (7 sets, daily range): BP systolic 135–181; BP diastolic 68–104; PULSE 84–97; RESP 18–20; TEMP 97.6–98.7; O2SAT 92–95
[2017-11-27] MEDS ORDERED: RESP: ALBUTEROL 2.5 MG/3 ML NEB (PRN) INH (01:00)
[2017-11-27] MEDS: LEVOTHYROXINE SODIUM 100 MCG TAB PO SCH (06:37)
[2017-11-27] MEDS: HEPARIN SODIUM - SQ 10,000 UNITS/ML VIAL SQ SCH ×3 (06:40→21:48)
--- NOTE | 2017-11-27 08:16 | MB ---
cc: Terrence Solis MD, Slobodan MD DATE: 11/24/2017 REASON FOR CONSULTATION: Infected peritoneal dialysis catheter, renal failure. HISTORY OF PRESENT ILLNESS: This patient with longstanding renal failure presents with fever, chills and cough with wheezing. The patient was worked up and found to have a peritoneal dialysis catheter with peritonitis at this point and this has been treated now for about 3 weeks or so. At this point, I am requested to remove the PD catheter. PAST MEDICAL HISTORY: Renal failure, hypertension and depression. PAST SURGICAL HISTORY: Tubal ligation, several PD catheter placements. MEDICATIONS: Multiple and can be found on the chart. ALLERGIES: This can be found in the record. PHYSICAL EXAMINATION: GENERAL; Reveals a somewhat overweight 52-year-old female in no acute distress. HEENT: Normocephalic. No trauma to the head. Pupils equal, reactive. Extraocular muscles intact. Sclerae are nonicteric. NECK: Bilateral carotid pulses. No bruits. CHEST: Clear, bilateral breath sounds. HEART: Regular rhythm. ABDOMEN: Soft. Hypoactive bowel sounds. Scars on the abdominal wall from previous PD catheter placements. No rebound, no guarding, no masses. Actually, the patient is not tender at this point. EXTREMITIES: Within normal limits. Good proximal distal pulses. No vascular deficit. BACK: Normal. IMPRESSION: A patient with end-stage renal failure, on transplant list, with peritonitis. We will remove the dialysis catheter on an urgent basis today. Thank you much for referral. MD MARIE Brooke/ , 07:17 PM , 07:31 PM
[2017-11-27] MEDS: SODIUM CHLORIDE 0.9% FLUSH 10 ML FLUSH IV FLUSH SCH ×2 (09:00→21:51)
[2017-11-27] MEDS: SEVELAMER CARBONATE 800 MG TAB PO SCH ×3 (09:00→17:42)
[2017-11-27] MEDS: VENLAFAXINE HCL XR 37.5 MG CAP PO SCH ×2 (09:00→14:12)
[2017-11-27] MEDS: FUROSEMIDE 80 MG TAB PO SCH ×2 (09:00→14:12)
[2017-11-27] MEDS: DOCUSATE SODIUM 50 MG/SENNA 8.6 MG TAB PO SCH ×2 (09:00→21:47)
--- NOTE | 2017-11-27 09:26 | MP ---
cc: Terrence Solis MD DATE OF OPERATION: 11/24/2017 PREOPERATIVE DIAGNOSIS: Infected peritoneal dialysis catheter, end-stage renal failure. POSTOPERATIVE DIAGNOSIS: Infected peritoneal dialysis catheter, end-stage renal failure. PROCEDURE PERFORMED: Dialysis catheter removal. SURGEON: Terrence Solis MD ANESTHESIA: 1% Xylocaine MAC. ESTIMATED BLOOD LOSS: 10 mL PROCEDURE IN DETAIL: The patient was prepped and draped in the usual fashion. The area infiltrated with 1% Xylocaine. Small incision was made over the proximal cuff of the catheter, which is subcutaneous. This one is freed up and with a sharp dissection, the cuff is freed up. The catheter is now sort of pulled and it gives me the direction of the second cuff. The area is infiltrated with 1% Xylocaine. Then, vertical incision is made over the second cuff down to the peritoneum. Cuff is obviously subfascial, so this is freed up around the peritoneum and then very carefully the distal end of the catheter is retrieved and then both ends of the catheter are pulled up and the thyroid cuff freed up with cautery. The catheter is now cut in half and then both ends are removed. The area irrigated with the copious amounts of saline. Peritoneal opening closed with a 2-0 Vicryl [id number], so is the fascia. Skin is closed with 4-0 Monocryl. The patient tolerated the procedure well. The catheter was sent for cultures. MD MARIE Brooke/ , 07:19 PM , 07:36 PM
[2017-11-27 10:28] LABS: AUTOMATED NEUTROPHIL # 4.6 TH/MM3 (1.8-7.7); BASOPHIL # 0.1 TH/MM3 (0-0.2); BASOPHIL % 1.2 % (0.0-2.0); EOSINOPHIL # 0.5 TH/MM3 (0-0.4); EOSINOPHIL % 7.9 % (0.0-4.0); HEMATOCRIT 29.5 % (35.0-46.0); HEMOGLOBIN 10.1 GM/DL (11.6-15.3); LYMPH % 16.1 % (9.0-44.0); LYMPHOCYTE # 1.1 TH/MM3 (1.0-4.8); MEAN CELL VOLUME 88.6 FL (80.0-100.0); MEAN CORPUSCULAR HEMOGLOBIN 30.3 PG (27.0-34.0); MEAN CORPUSCULAR HGB CONC 34.2 % (32.0-36.0); MEAN PLATELET VOLUME 8.4 FL (7.0-11.0); MONO % 7.5 % (0.0-8.0); MONOCYTE # 0.5 TH/MM3 (0-0.9); NEUT % 67.3 % (16.0-70.0); PLATELET COUNT 243 TH/MM3 (150-450); RED BLOOD COUNT 3.34 MIL/MM3 (4.00-5.30); RED CELL DISTRIBUTION WIDTH 12.8 % (11.6-17.2); WHITE BLOOD COUNT 6.8 TH/MM3 (4.0-11.0)
[2017-11-27 10:47] LABS: BICARBONATE 25.3 MEQ/L (21.0-32.0); CALCIUM 8.5 MG/DL (8.5-10.1); CREATININE 8.24 MG/DL (0.50-1.00)
--- NOTE | 2017-11-27 11:35 | HHI.NPPN ---
Objective Data Data 11/27/17 11/28/17 19:00 07:00 Output Total 1500 ml Balance -1500 ml Hemodialysis 1500 ml Vital Signs Date Time Temp Pulse Resp B/P (MAP) Pulse Ox O2 Delivery O2 Flow Rate FiO2 11/27/17 07:56 97.7 84 20 142/70 (94) 94 11/27/17 05:32 97.6 86 18 157/73 (101) 92 11/27/17 01:00 98.7 94 18 151/83 (105) 93 11/26/17 23:30 95 11/26/17 20:00 98.8 99 18 143/83 (103) 96 11/26/17 15:59 98.6 95 18 131/74 (93) 91 11/26/17 12:27 98.6 90 18 129/72 (91) 92 -: 11/27/17 0740 11/27/17 0740 Microbiology 11/27/17 Gram Stain, Received Pending 11/27/17 Sputum Culture, Received Pending Physical Exam General Appearance: Well Developed, No Acute Distress Neck Neck Exam: Neck Supple Pulmonary Resp Exam: Clear Bilaterally Cardiology CV Exam: Regular, Normal Sinus Rhythm Gastrointestinal/Abdomen GI Exam: Soft, Non-Tender Assessment/Plan Problem List: (1) Peritonitis due to infected peritoneal dialysis catheter ICD Codes: T85.71XA - Infection and inflammatory reaction due to peritoneal dialysis catheter, initial encounter; K65.9 - Peritonitis, unspecified Status: Acute Plan: ESRD on HD PermCath inserted UF 1.5 L she will need HD set up called [facility] continue HD until fungal Peritonitis is treated Will follow along with you (2) ESRD (end stage renal disease) ICD Codes: N18.6 - End stage renal disease Status: Chronic Plan: Convert temporarily on hemodialysis she is being treated for fungal peritonitis (3) Hypertension ICD Codes: I10 - Essential (primary) hypertension Status: Chronic Plan: Continue to monitor Problem Qualifiers (1) Peritonitis due to infected peritoneal dialysis catheter: Qualified Codes: T85.71XD - Infection and inflammatory reaction due to peritoneal dialysis catheter, subsequent encounter; K65.9 - Peritonitis, unspecified (2) Hypertension: Qualified Codes: I10 - Essential (primary) hypertension Jayce Parks MD Nov 27, 2017 11:34
--- NOTE | 2017-11-27 14:01 | HHI.FPPN ---
Addendum to progress note ADDENDUM Reason for addendum: Additonal documentation Additional information Spoke with KRISTINA Cadet at dialysis center. Peritoneal fluid culture results are as follows: Viky Parapsilosis Sensitive to Fluconazole ANTHONY = 1 Sensitive to Itraconazole ANTHONY = 0.12 Sensitive to Voraconazole ANTHONY = 0.015 Angelica Khan MD Nov 27, 2017 14:01
--- NOTE | 2017-11-27 16:08 | HHI.FPPN ---
Subjective Remarks Patient was seen and evaluated this morning. She was undergoing hemodialysis during encounter. She reports feeling well. She denies chest pain, shortness of breath, nausea, vomiting, diarrhea and constipation. All questions were answered. (Suyapa Vazquez MD R1) Objective Vitals Vital Signs Date Time Temp Pulse Resp B/P (MAP) Pulse Ox O2 Delivery O2 Flow Rate FiO2 11/27/17 12:13 97.8 88 20 157/77 (103) 93 11/27/17 07:56 97.7 84 20 142/70 (94) 94 11/27/17 05:32 97.6 86 18 157/73 (101) 92 11/27/17 01:00 98.7 94 18 151/83 (105) 93 11/26/17 23:30 95 11/26/17 20:00 98.8 99 18 143/83 (103) 96 11/26/17 15:59 98.6 95 18 131/74 (93) 91 I/O 11/26/17 11/26/17 11/26/17 11/27/17 11/27/17 11/27/17 07:00 15:00 23:00 07:00 15:00 23:00 Intake Total 100 ml Output Total 1500 ml Balance 100 ml -1500 ml IV Total 100 ml Hemodialysis 1500 ml (Suyapa Vazquez MD R1) Result Diagram: 11/27/17 0740 11/27/17 0740 Imaging Last 72 hours Impressions Chest X-Ray 11/26/17 0000 Signed Impressions: Service Date/Time: Sunday, November 26, 2017 14:30 - CONCLUSION: No acute disease Papo Richard MD Objective Remarks GENERAL: This is a well-nourished, well-developed patient, in no apparent distress. SKIN: Warm and dry. VasCath placed on right. Bandage covering incision site of PD catheter removal. HEAD: Atraumatic. Normocephalic. EYES: Pupils equal round. Extraocular motions intact. No scleral icterus. No injection or drainage. ENT: Nose without bleeding, purulent drainage or septal hematoma. Airway patent. NECK: Trachea midline. Supple, nontender, no meningeal signs. CARDIOVASCULAR: Regular rate and rhythm without murmurs, gallops, or rubs. RESPIRATORY: Clear to auscultation anteriorly. Breath sounds equal bilaterally. No wheezes, rales, or rhonchi. GASTROINTESTINAL: Abdomen soft, non-tender, nondistended. No hepato-splenomegaly , or palpable masses. No guarding. MUSCULOSKELETAL: Extremities without clubbing, cyanosis. NEUROLOGICAL: Awake and alert. Cranial nerves II through XII intact. Motor and sensory grossly within normal limits. Five out of 5 muscle strength in all muscle groups. Normal speech. Medications and IVs Current Medications Medications (Trade) Dose Ordered Sig/Dasia Route Start Time Stop Time Status Last Admin (Norvasc) 10 mg DAILY PO 11/24/17 17:00 11/26/17 08:57 (Lasix) 80 mg DAILY PO 11/25/17 09:00 11/27/17 14:12 (Synthroid) 100 mcg DAILY@0600 PO 11/25/17 06:00 11/27/17 06:37 (Renvela) 800 mg TID PO 11/24/17 18:00 11/27/17 12:51 (Desyrel) 50 mg HS PO 11/24/17 21:00 11/26/17 21:17 (Effexor Xr) 37.5 mg DAILY PO 11/24/17 17:15 11/27/17 14:12 (NS Flush) 2 ml UNSCH PRN IV FLUSH 11/24/17 17:00 11/26/17 10:53 (NS Flush) 2 ml BID IV FLUSH 11/24/17 21:00 11/26/17 21:17 (Zofran Inj) 4 mg Q6H PRN IVP 11/24/17 17:00 11/26/17 10:52 (Tylenol) 650 mg Q6H PRN PO 11/24/17 17:00 11/26/17 09:02 (Monica-Colace) 1 tab BID PO 11/24/17 21:00 11/26/17 21:17 (Milk Of Magnesia Liq) 30 ml Q12H PRN PO 11/24/17 17:00 (Senokot) 17.2 mg Q12H PRN PO 11/24/17 17:00 11/26/17 06:42 (Dulcolax Supp) 10 mg DAILY PRN RECTAL 11/24/17 17:00 (Lactulose Liq) 30 ml DAILY PRN PO 11/24/17 17:00 (NS Flush) UNSCH PRN IV FLUSH 11/24/17 18:15 (Heparin Inj) UNSCH PRN IV FLUSH 11/24/17 18:15 (Trandate Inj) 10 mg Q6H PRN IV PUSH 11/24/17 20:45 Micafungin Sodium 100 mg/Sodium Chloride 100 ml @ 100 mls/hr Q24H IV 11/24/17 21:00 11/26/17 21:16 (Catapres) 0.1 mg Q6H PRN PO 11/24/17 22:30 ([place] 5-325 Mg) 1 tab Q4H PRN PO 11/24/17 22:30 ([place] 7.5-325 Mg) 1 tab Q4H PRN PO 11/24/17 22:30 11/25/17 12:40 (Morphine Inj) 1 mg Q3H PRN IV PUSH 11/24/17 22:30 (Dimetapp Liq) 5 ml Q6H PRN PO 11/24/17 23:15 11/26/17 22:24 (Robitussin La Pediatric Cough Liq) 3.75 mg Q6H PRN PO 11/24/17 23:15 11/24/17 23:51 (Heparin Inj) 5,000 units Q8H SQ 11/26/17 06:00 11/27/17 14:13 (Albuterol Neb) 2.5 mg Q4HR NEB PRN INH 11/27/17 01:00 (Suyapa Vazquez MD R1) Urinary Catheter: No (Suyapa Vazquez MD R1) Vascular Central Line Catheter: No (Suyapa Vazquez MD R1) A/P Assessment and Plan Patient is a 52 year old female with a past medical history significant of ESRD and HTN who presents to the ED following positive peritoneal fluid cultures per nephrology. Admitted for PD catheter removal, VasCath placement to allow for HD and anti-fungal therapy. Discharge Planning Pending final identification of culture per ID recommendation (Suyapa Vazquez MD R1) Attending Attestation Patient seen and examined, discussed with resident team. I agree with assessment and management as documented and discussed with me. Pt seen in dialysis. She reports cough is improved. Continue micafungin, while we await sensitivities, to determine course of treatment for fungal peritoneal infection. Dialysis chair to be arranged as an outpt. (Angelica Khan MD) Problem List: (1) Cough ICD Codes: R05 - Cough Status: Acute Plan: Cough 5 days, stable. CXR: No acute disease. Sputum culture pending. Continue Bromphen and Robitussin. (2) Peritonitis due to infected peritoneal dialysis catheter ICD Codes: T85.71XA - Infection and inflammatory reaction due to peritoneal dialysis catheter, initial encounter; K65.9 - Peritonitis, unspecified Status: Acute Plan: Patient with history of ESRD on peritoneal dialysis. Peritoneal fluid cultured on Monday, growing yeast per nephrology. Records have been requested. Peritoneal dialysis catheter removal 11/24. ID consulted. Recommends awaiting final culture Medications: * In ED, Fluconazole 400mg IV once. * Micafungin 100mg IV daily. * 11/24/17--> (3) ESRD (end stage renal disease) ICD Codes: N18.6 - End stage renal disease Status: Chronic Plan: Patient with history of ESRD, diagnosed two years ago. She previously had peritoneal dialysis daily at home. She was placed on transplant list . * VasCath placed by IR for HD 11/24. * Dialysis per nephrology. (4) Lower extremity edema ICD Codes: R60.0 - Localized edema Status: Resolved Plan: Left sided lower extremity edema and calf pain, present at admission. * US Doppler left lower extremity to rule out DVT. (5) Hypertension ICD Codes: I10 - Essential (primary) hypertension Status: Chronic Plan: Patient with history of hypertension. Blood pressure mildly elevated in hospital; anticipate improvement with hemodialysis. BPs have improved over the last 24 hours. * Continue home meds. * Labetalol 10mg IV q6hr PRN SBP >=170 or DBP >=100. Hold for HR<=60. (6) Hypothyroidism ICD Codes: E03.9 - Hypothyroidism, unspecified Status: Chronic Plan: Patient with history of hypothyroidism. * Continue home meds. (7) Depression ICD Codes: F32.9 - Major depressive disorder, single episode, unspecified Status: Chronic Plan: Patient with history of depression. * Continue home meds. (8) Fluid, Electrolyte, Nutrition and Prophylaxis Status: Acute Plan: Fluid: * Tolerating PO. Electrolyte: * Monitor and replete as necessary. Nutrition: * Renal diet Prophylaxis: * SCD. * Chemoprophylaxis: Heparin 5000 units q8hr. (Suyapa Vazquez MD R1) Problem Qualifiers (1) Peritonitis due to infected peritoneal dialysis catheter: Qualified Codes: T85.71XD - Infection and inflammatory reaction due to peritoneal dialysis catheter, subsequent encounter; K65.9 - Peritonitis, unspecified (2) Hypertension: Qualified Codes: I10 - Essential (primary) hypertension (3) Hypothyroidism: Qualified Codes: E03.9 - Hypothyroidism, unspecified (4) Depression: Suyapa Vazquez MD R1 Nov 27, 2017 16:08 Angelica Khan MD Nov 28, 2017 06:46
--- NOTE | 2017-11-27 16:58 | HHI.IDPN ---
Subjective Subjective Remarks doing OK afebrile no c/o She grew C. parapsolosa in the periotoneal fluid clx Antibiotics micafungin Allergies: Coded Allergies: adhesive (Unverified Allergy, Intermediate, Rash, 04/13/17) May be due to duration of exposure doxycycline (Unverified Allergy, Intermediate, Tongue Swelling, Hives, ) erythromycin base (Unverified Allergy, Intermediate, Tongue Swelling, Hives, 04/13/17) minocycline (Unverified Allergy, Intermediate, Tongue Swelling, Hives, ) penicillin G (Unverified Allergy, Intermediate, Tongue Swelling, Hives, ) tigecycline (Unverified Allergy, Intermediate, Tongue Swelling, Hives, ) tetracycline (Verified Allergy, Mild, HIVES, 11/24/17) lactose (Unverified Adverse Reaction, Intermediate, 04/13/17) Objective . Vital Signs Date Time Temp Pulse Resp B/P (MAP) Pulse Ox O2 Delivery O2 Flow Rate FiO2 11/27/17 15:47 98.6 97 20 135/68 (90) 94 11/27/17 12:13 97.8 88 20 157/77 (103) 93 11/27/17 07:56 97.7 84 20 142/70 (94) 94 11/27/17 05:32 97.6 86 18 157/73 (101) 92 11/27/17 01:00 98.7 94 18 151/83 (105) 93 11/26/17 23:30 95 11/26/17 20:00 98.8 99 18 143/83 (103) 96 11/27/17 11/27/17 11/28/17 15:00 23:00 07:00 Intake Total 360 ml Output Total 1500 ml Balance -1500 ml 360 ml Intake Oral 360 ml Hemodialysis 1500 ml # Voids 3 . Laboratory Tests Test 11/26/17 06:40 11/27/17 07:40 White Blood Count 6.7 TH/MM3 6.8 TH/MM3 Red Blood Count 3.06 MIL/MM3 3.34 MIL/MM3 Hemoglobin 9.4 GM/DL 10.1 GM/DL Hematocrit 27.2 % 29.5 % Mean Corpuscular Volume 88.8 FL 88.6 FL Mean Corpuscular Hemoglobin 30.6 PG 30.3 PG Mean Corpuscular Hemoglobin Concent 34.5 % 34.2 % Red Cell Distribution Width 13.0 % 12.8 % Platelet Count 225 TH/MM3 243 TH/MM3 Mean Platelet Volume 8.0 FL 8.4 FL Neutrophils (%) (Auto) 66.6 % 67.3 % Lymphocytes (%) (Auto) 14.0 % 16.1 % Monocytes (%) (Auto) 10.3 % 7.5 % Eosinophils (%) (Auto) 8.4 % 7.9 % Basophils (%) (Auto) 0.7 % 1.2 % Neutrophils # (Auto) 4.5 TH/MM3 4.6 TH/MM3 Lymphocytes # (Auto) 0.9 TH/MM3 1.1 TH/MM3 Monocytes # (Auto) 0.7 TH/MM3 0.5 TH/MM3 Eosinophils # (Auto) 0.6 TH/MM3 0.5 TH/MM3 Basophils # (Auto) 0.0 TH/MM3 0.1 TH/MM3 CBC Comment DIFF FINAL DIFF FINAL Differential Comment Laboratory Tests Test 11/26/17 06:40 11/27/17 07:40 Blood Urea Nitrogen 30 MG/DL 35 MG/DL Creatinine 7.34 MG/DL 8.24 MG/DL Random Glucose 82 MG/DL 75 MG/DL Total Protein 6.3 GM/DL Albumin 2.1 GM/DL Calcium Level 8.4 MG/DL 8.5 MG/DL Alkaline Phosphatase 47 U/L Aspartate Amino Transf (AST/SGOT) 29 U/L Alanine Aminotransferase (ALT/SGPT) 7 U/L Total Bilirubin 0.3 MG/DL Sodium Level 140 MEQ/L 139 MEQ/L Potassium Level 3.7 MEQ/L 3.5 MEQ/L Chloride Level 104 MEQ/L 103 MEQ/L Carbon Dioxide Level 26.4 MEQ/L 25.3 MEQ/L Anion Gap 10 MEQ/L 11 MEQ/L Estimat Glomerular Filtration Rate 6 ML/MIN 5 ML/MIN Microbiology Date/Time Source Procedure Growth Status 11/27/17 01:00 Sputum Expectorated Sputum Gram Stain - Final Resulted 11/27/17 01:00 Sputum Expectorated Sputum Sputum Culture Pending Resulted 11/24/17 19:04 Wound Other Fungal Smear - Final NO FUNGAL ELEMENTS SEEN. Resulted 11/24/17 19:04 Wound Other Fungal Culture Pending Resulted 11/24/17 19:04 Wound Other Acid Fast Stain - Final NO ACID FAST BACILLI SEEN Resulted 11/24/17 19:04 Wound Other Mycobacterial Culture Pending Resulted 11/24/17 19:04 Wound Other Gram Stain - Final Complete 11/24/17 19:04 Wound Culture - Final Viky Parapsilosis Complete Imaging Last Impressions Chest X-Ray 11/26/17 0000 Signed Impressions: Service Date/Time: Sunday, November 26, 2017 14:30 - CONCLUSION: No acute disease Papo Richard MD Lower Extremity Ultrasound 11/24/17 0000 Signed Impressions: Service Date/Time: Friday, November 24, 2017 19:48 - CONCLUSION: Normal examination. Dung May MD Catheter Placement X-Ray 11/24/17 0000 Signed Impressions: Service Date/Time: Friday, November 24, 2017 17:17 - CONCLUSION: Uncomplicated PermaCath placement as above. Kale Wyatt MD Physical Exam CONSTITUTIONAL/GENERAL: This is an adequately nourished patient, in no apparent distress. Assessment & Plan Remarks Viky parapsilosa peritonitis aw PD catheter ESRD sp removal of [place] pt is now on HD dc micafungin start fluconazole [address] Eduard Perry,Fauzia Arellano MD Nov 27, 2017 16:58
[2017-11-27] MEDS: FLUCONAZOLE 200 MG TAB PO SCH (17:42)
[2017-11-27] MEDS: traZODone HCL 50 MG TAB PO SCH (21:47)
[2017-11-28] VITALS (7 sets, daily range): BP systolic 156–188; BP diastolic 77–100; PULSE 81–93; RESP 18–20; TEMP 97.1–98.3; O2SAT 94–97
[2017-11-28] MEDS: LEVOTHYROXINE SODIUM 100 MCG TAB PO SCH (06:04)
[2017-11-28] MEDS: HEPARIN SODIUM - SQ 10,000 UNITS/ML VIAL SQ SCH ×3 (06:04→22:01)
[2017-11-28 07:17] LABS: AUTOMATED NEUTROPHIL # 5.1 TH/MM3 (1.8-7.7); BASOPHIL # 0.1 TH/MM3 (0-0.2); BASOPHIL % 0.9 % (0.0-2.0); EOSINOPHIL # 0.6 TH/MM3 (0-0.4); EOSINOPHIL % 8.5 % (0.0-4.0); HEMATOCRIT 33.4 % (35.0-46.0); HEMOGLOBIN 11.4 GM/DL (11.6-15.3); LYMPH % 16.9 % (9.0-44.0); LYMPHOCYTE # 1.3 TH/MM3 (1.0-4.8); MEAN CELL VOLUME 88.6 FL (80.0-100.0); MEAN CORPUSCULAR HEMOGLOBIN 30.1 PG (27.0-34.0); MEAN PLATELET VOLUME 8.1 FL (7.0-11.0); MONO % 6.2 % (0.0-8.0); MONOCYTE # 0.5 TH/MM3 (0-0.9); NEUT % 67.5 % (16.0-70.0); PLATELET COUNT 242 TH/MM3 (150-450); RED BLOOD COUNT 3.77 MIL/MM3 (4.00-5.30); RED CELL DISTRIBUTION WIDTH 12.8 % (11.6-17.2); WHITE BLOOD COUNT 7.5 TH/MM3 (4.0-11.0)
[2017-11-28 07:58] LABS: BICARBONATE 28.4 MEQ/L (21.0-32.0); CALCIUM 9.1 MG/DL (8.5-10.1); CREATININE 6.16 MG/DL (0.50-1.00)
[2017-11-28] MEDS: FLUCONAZOLE 200 MG TAB PO SCH (10:19)
[2017-11-28] MEDS: SEVELAMER CARBONATE 800 MG TAB PO SCH ×3 (10:19→18:00)
[2017-11-28] MEDS: VENLAFAXINE HCL XR 37.5 MG CAP PO SCH (10:19)
[2017-11-28] MEDS: FUROSEMIDE 80 MG TAB PO SCH (10:20)
--- NOTE | 2017-11-28 17:16 | HHI.FPPN ---
Subjective Remarks Patient seen and examined this morning bedside. Patient states that her cough has been getting better. She denies any fever or chills overnight. She denies any difficulty breathing. She has not had any further nausea or vomiting. Patient is ready to go home is in asking when she can go home. (Marbella Driscoll MD R2) Objective Vitals Vital Signs Date Time Temp Pulse Resp B/P (MAP) Pulse Ox O2 Delivery O2 Flow Rate FiO2 11/28/17 12:00 97.9 87 20 168/84 (112) 94 11/28/17 08:00 97.9 81 20 164/77 (106) 94 11/28/17 04:00 97.1 84 18 188/100 (129) 97 11/28/17 00:35 180/78 (112) 11/28/17 00:00 97.6 88 18 95 11/27/17 20:00 98.2 93 20 169/104 (125) 94 I/O 11/27/17 11/27/17 11/27/17 11/28/17 11/28/17 11/28/17 07:00 15:00 23:00 07:00 15:00 23:00 Intake Total 360 ml Output Total 1500 ml Balance -1500 ml 360 ml Intake Oral 360 ml Hemodialysis 1500 ml # Voids 3 1 (Marbella Driscoll MD R2) Result Diagram: 11/28/1739 11/28/17 0639 Objective Remarks GENERAL: This is a well-nourished, well-developed patient, in no apparent distress. SKIN: Warm and dry. VasCath placed on right. Bandage covering incision site of PD catheter removal. HEAD: Atraumatic. Normocephalic. EYES: Pupils equal round. Extraocular motions intact. No scleral icterus. No injection or drainage. ENT: Nose without bleeding, purulent drainage or septal hematoma. Airway patent. NECK: Trachea midline. Supple, nontender, no meningeal signs. CARDIOVASCULAR: Regular rate and rhythm without murmurs, gallops, or rubs. RESPIRATORY: Clear to auscultation anteriorly. Breath sounds equal bilaterally. No wheezes, rales, or rhonchi. Coarse breath sounds at bases GASTROINTESTINAL: Abdomen soft, non-tender, nondistended. No hepato-splenomegaly , or palpable masses. No guarding. MUSCULOSKELETAL: Extremities without clubbing, cyanosis. NEUROLOGICAL: Awake and alert. Cranial nerves II through XII intact. Motor and sensory grossly within normal limits. Five out of 5 muscle strength in all muscle groups. Normal speech. (Marbella Driscoll MD R2) A/P Assessment and Plan Patient is a 52 year old female with a past medical history significant of ESRD and HTN who presents to the ED following positive peritoneal fluid cultures per nephrology. Admitted for PD catheter removal, VasCath placement to allow for HD and anti-fungal therapy. Discharge Planning Pending dialysis chair (Marbella Driscoll MD R2) Attending Attestation Patient seen and examined, discussed with resident team. I agree with assessment and management as documented and discussed with me. Pt reports no complaints. Fungal culture reviewed; appreciate ID who has changed micafungin to diflucan. Await arrangement of dialysis chair. (Angelica Khan MD) Problem List: (1) Cough ICD Codes: R05 - Cough Status: Acute Plan: Cough 5 days, stable. CXR: No acute disease. Sputum culture: Normal respiratory rosa Continue Bromphen and Robitussin. (2) Peritonitis due to infected peritoneal dialysis catheter ICD Codes: T85.71XA - Infection and inflammatory reaction due to peritoneal dialysis catheter, initial encounter; K65.9 - Peritonitis, unspecified Status: Acute Plan: Patient with history of ESRD on peritoneal dialysis. Peritoneal fluid cultured on Monday, growing yeast per nephrology. Records have been requested. Peritoneal dialysis catheter removal 11/24. ID consulted. Recommends awaiting final culture Medications: * In ED, Fluconazole 400mg IV once. * Micafungin 100mg IV daily. * 11/24/17--> 11/26/17 Per ID: Diflucan 200mg PO daily - 6 week regimen? need to clarify with ID (3) ESRD (end stage renal disease) ICD Codes: N18.6 - End stage renal disease Status: Chronic Plan: Patient with history of ESRD, diagnosed two years ago. She previously had peritoneal dialysis daily at home. She was placed on transplant list . * VasCath placed by IR for HD 11/24. * Dialysis per nephrology. (4) Lower extremity edema ICD Codes: R60.0 - Localized edema Status: Resolved Plan: Left sided lower extremity edema and calf pain, present at admission. * US Doppler left lower extremity to rule out DVT. (5) Hypertension ICD Codes: I10 - Essential (primary) hypertension Status: Chronic Plan: Patient with history of hypertension. Blood pressure mildly elevated in hospital; anticipate improvement with hemodialysis. BPs have improved over the last 24 hours. * Continue home meds. * Labetalol 10mg IV q6hr PRN SBP >=170 or DBP >=100. Hold for HR<=60. (6) Hypothyroidism ICD Codes: E03.9 - Hypothyroidism, unspecified Status: Chronic Plan: Patient with history of hypothyroidism. * Continue home meds. (7) Depression ICD Codes: F32.9 - Major depressive disorder, single episode, unspecified Status: Chronic Plan: Patient with history of depression. * Continue home meds. (8) Fluid, Electrolyte, Nutrition and Prophylaxis Status: Acute Plan: Fluid: * Tolerating PO. Electrolyte: * Monitor and replete as necessary. Nutrition: * Renal diet Prophylaxis: * SCD. * Chemoprophylaxis: Heparin 5000 units q8hr. (Marbella Driscoll MD R2) Problem Qualifiers (1) Peritonitis due to infected peritoneal dialysis catheter: Qualified Codes: T85.71XD - Infection and inflammatory reaction due to peritoneal dialysis catheter, subsequent encounter; K65.9 - Peritonitis, unspecified (2) Hypertension: Qualified Codes: I10 - Essential (primary) hypertension (3) Hypothyroidism: Qualified Codes: E03.9 - Hypothyroidism, unspecified (4) Depression: Marbella Driscoll MD R2 Nov 28, 2017 17:16 Angelica Khan MD Nov 28, 2017 21:32
[2017-11-28] MEDS: DOCUSATE SODIUM 50 MG/SENNA 8.6 MG TAB PO SCH (20:10)
[2017-11-28] MEDS: SODIUM CHLORIDE 0.9% FLUSH 10 ML FLUSH IV FLUSH SCH (20:10)
[2017-11-28] MEDS: traZODone HCL 50 MG TAB PO SCH (20:10)
[2017-11-28] MEDS: PHENYLEPHRINE 2.5 MG/BROMPHENIRAMINE 1 MG PER 5 ML UDC PO PRN (20:11)
[2017-11-29] VITALS (7 sets, daily range): BP systolic 136–162; BP diastolic 73–90; PULSE 80–87; RESP 18–20; TEMP 97.4–98.1; O2SAT 92–97
[2017-11-29] MEDS: LEVOTHYROXINE SODIUM 100 MCG TAB PO SCH (05:33)
[2017-11-29] MEDS: HEPARIN SODIUM - SQ 10,000 UNITS/ML VIAL SQ SCH ×3 (05:33→21:01)
[2017-11-29] MEDS: SEVELAMER CARBONATE 800 MG TAB PO SCH ×3 (09:00→18:06)
[2017-11-29] MEDS: SODIUM CHLORIDE 0.9% FLUSH 10 ML FLUSH IV FLUSH SCH ×2 (09:00→21:00)
[2017-11-29 09:08] LABS: HEMATOCRIT 29.9 % (35.0-46.0); HEMOGLOBIN 10.3 GM/DL (11.6-15.3); MEAN CELL VOLUME 87.6 FL (80.0-100.0); MEAN CORPUSCULAR HEMOGLOBIN 30.2 PG (27.0-34.0); MEAN CORPUSCULAR HGB CONC 34.5 % (32.0-36.0); MEAN PLATELET VOLUME 8.2 FL (7.0-11.0); PLATELET COUNT 240 TH/MM3 (150-450); RED BLOOD COUNT 3.41 MIL/MM3 (4.00-5.30); RED CELL DISTRIBUTION WIDTH 12.7 % (11.6-17.2); WHITE BLOOD COUNT 7.9 TH/MM3 (4.0-11.0)
[2017-11-29 09:36] LABS: ALBUMIN 2.5 GM/DL (3.4-5.0); BICARBONATE 27.7 MEQ/L (21.0-32.0); BLOOD UREA NITROGEN 30 MG/DL (7-18); CALCIUM 8.6 MG/DL (8.5-10.1); CHLORIDE 101 MEQ/L (98-107); CREATININE 7.38 MG/DL (0.50-1.00); GLOMERULAR FILTRATION RATE 6 ML/MIN (>89); GLUCOSE,RANDOM 98 MG/DL (74-106); SODIUM (NA) 137 MEQ/L (136-145)
[2017-11-29 09:37] LABS: ALT (GPT) 13 U/L (10-53); AST (GOT) 36 U/L (15-37)
[2017-11-29 09:39] LABS: ALKALINE PHOSPHATASE 77 U/L (45-117); TOTAL BILIRUBIN ADULT 0.3 MG/DL (0.2-1.0); TOTAL PROTEIN 6.9 GM/DL (6.4-8.2)
--- NOTE | 2017-11-29 10:06 | HHI.NPPN ---
Subjective History of Present Illness 52 year old female with ESRD Fungal peritonitis Objective Data Data Vital Signs Date Time Temp Pulse Resp B/P (MAP) Pulse Ox O2 Delivery O2 Flow Rate FiO2 11/29/17 08:32 98.1 82 20 159/90 (113) 92 11/29/17 04:00 97.4 87 18 161/86 (111) 93 11/29/17 00:00 97.6 80 18 162/83 (109) 97 162/86 (111) 11/28/17 20:00 98.3 93 18 162/83 (109) 94 11/28/17 16:00 97.5 92 20 156/93 (114) 94 11/28/17 12:00 97.9 87 20 168/84 (112) 94 -: 11/29/17 0802 11/29/17 0802 Physical Exam General Appearance: Well Developed, No Acute Distress Neck Neck Exam: Neck Supple Pulmonary Resp Exam: Clear Bilaterally Cardiology CV Exam: Regular, Normal Sinus Rhythm Gastrointestinal/Abdomen GI Exam: Soft, Non-Tender Assessment/Plan Problem List: (1) Peritonitis due to infected peritoneal dialysis catheter ICD Codes: T85.71XA - Infection and inflammatory reaction due to peritoneal dialysis catheter, initial encounter; K65.9 - Peritonitis, unspecified Status: Acute Plan: ESRD on HD PermCath inserted seen during hemodialysis Permcath slow to work with UF 1.5 L she will need HD set up called [facility] continue HD until fungal Peritonitis is treated with Fluconazole Will follow along with you (2) ESRD (end stage renal disease) ICD Codes: N18.6 - End stage renal disease Status: Chronic Plan: Convert temporarily on hemodialysis she is being treated for fungal peritonitis (3) Hypertension ICD Codes: I10 - Essential (primary) hypertension Status: Chronic Plan: Continue to monitor Problem Qualifiers (1) Peritonitis due to infected peritoneal dialysis catheter: Qualified Codes: T85.71XD - Infection and inflammatory reaction due to peritoneal dialysis catheter, subsequent encounter; K65.9 - Peritonitis, unspecified (2) Hypertension: Qualified Codes: I10 - Essential (primary) hypertension Jayce Parks MD Nov 29, 2017 10:06
[2017-11-29] MEDS ORDERED: SODIUM CHLOR 0.9% 1000 ML INJ 1,000 ML OTHER PRN ×2 (10:55)
[2017-11-29] MEDS ORDERED: SODIUM CHLOR 0.9% 1000 ML INJ 1,000 ML IV PRN (10:55)
[2017-11-29] MEDS ORDERED: cloNIDine HCL 0.1 MG TAB PO PRN (11:00)
[2017-11-29] MEDS ORDERED: SODIUM CHLORIDE 0.9% FLUSH 10 ML FLUSH IV FLUSH PRN (11:00)
[2017-11-29] MEDS ORDERED: EPOETIN ALFA 10,000 UNITS/ML VIAL IV PUSH PRN (11:00)
[2017-11-29] MEDS ORDERED: ACETAMINOPHEN 325 MG TAB PO PRN (11:00)
[2017-11-29] MEDS ORDERED: MANNITOL 12.5 GM/50 ML VIAL IV PRN (11:00)
[2017-11-29] MEDS ORDERED: HEPARIN SODIUM - IV 10,000 UNITS/10 ML VIAL IV FLUSH PRN (11:00)
[2017-11-29] MEDS ORDERED: HEPARIN SODIUM - IV 10,000 UNITS/10 ML VIAL PRN (11:00)
[2017-11-29] MEDS ORDERED: GELATIN 12 MM/7 MM FOAM TOP PRN (11:00)
[2017-11-29] MEDS ORDERED: ONDANSETRON HCL 4 MG/2 ML VIAL IV PUSH PRN (11:00)
[2017-11-29] MEDS ORDERED: GENTAMICIN SULFATE 20 MG/2 ML VIAL OTHER PRN (11:00)
[2017-11-29] MEDS ORDERED: NITROGLYCERIN 0.4 MG SL 25 TABS/BTL SL PRN (11:00)
[2017-11-29] MEDS ORDERED: diphenhydrAMINE HCL 25 MG CAP PO PRN (11:00)
[2017-11-29] MEDS ORDERED: ALBUMIN 25% INJ 100 ML IV PRN (11:00)
--- NOTE | 2017-11-29 12:07 | HHI.FPPN ---
Subjective Remarks Patient was seen and evaluated this morning. She was undergoing hemodialysis during encounter. She reports feeling well. She denies chest pain, shortness of breath, nausea, vomiting, diarrhea and constipation. She is anxiously awaiting her discharge; dialysis chair is being set-up with the assistance of case management. All questions were answered. (Suyapa Vazquez MD R1) Objective Vitals Vital Signs Date Time Temp Pulse Resp B/P (MAP) Pulse Ox O2 Delivery O2 Flow Rate FiO2 11/29/17 08:32 98.1 82 20 159/90 (113) 92 11/29/17 04:00 97.4 87 18 161/86 (111) 93 11/29/17 00:00 97.6 80 18 162/83 (109) 97 162/86 (111) 11/28/17 20:00 98.3 93 18 162/83 (109) 94 11/28/17 16:00 97.5 92 20 156/93 (114) 94 11/28/17 12:00 97.9 87 20 168/84 (112) 94 I/O 11/28/17 11/28/17 11/28/17 11/29/17 11/29/17 11/29/17 07:00 15:00 23:00 07:00 15:00 23:00 Intake Total 480 ml Balance 480 ml Intake Oral 480 ml # Voids 1 6 # Bowel Movements 1 (Suyapa Vazquez MD R1) Result Diagram: 11/29/17 0802 11/29/17 0802 Objective Remarks GENERAL: This is a well-nourished, well-developed patient, in no apparent distress. SKIN: Warm and dry. VasCath placed on right. Bandage covering incision site of PD catheter removal. HEAD: Atraumatic. Normocephalic. EYES: Pupils equal round. Extraocular motions intact. No scleral icterus. No injection or drainage. ENT: Nose without bleeding, purulent drainage or septal hematoma. Airway patent. NECK: Supple, nontender, no meningeal signs. CARDIOVASCULAR: Regular rate and rhythm without murmurs, gallops, or rubs. RESPIRATORY: Clear to auscultation anteriorly. Breath sounds equal bilaterally. No wheezes, rales, or rhonchi. GASTROINTESTINAL: Abdomen soft, non-tender, nondistended. No hepato-splenomegaly , or palpable masses. No guarding. MUSCULOSKELETAL: Extremities without clubbing, cyanosis. NEUROLOGICAL: Awake and alert. Cranial nerves II through XII intact. Motor and sensory grossly within normal limits. Normal speech. Medications and IVs Current Medications Medications (Trade) Dose Ordered Sig/Dasia Route Start Time Stop Time Status Last Admin (Norvasc) 10 mg DAILY PO 11/24/17 17:00 11/28/17 10:20 (Lasix) 80 mg DAILY PO 11/25/17 09:00 11/28/17 10:20 (Synthroid) 100 mcg DAILY@0600 PO 11/25/17 06:00 11/29/17 05:33 (Renvela) 800 mg TID PO 11/24/17 18:00 11/28/17 10:19 (Desyrel) 50 mg HS PO 11/24/17 21:00 11/28/17 20:10 (Effexor Xr) 37.5 mg DAILY PO 11/24/17 17:15 11/28/17 10:19 (NS Flush) 2 ml UNSCH PRN IV FLUSH 11/24/17 17:00 11/26/17 10:53 (NS Flush) 2 ml BID IV FLUSH 11/24/17 21:00 11/28/17 20:10 (Zofran Inj) 4 mg Q6H PRN IVP 11/24/17 17:00 11/26/17 10:52 (Tylenol) 650 mg Q6H PRN PO 11/24/17 17:00 11/26/17 09:02 (Monica-Colace) 1 tab BID PO 11/24/17 21:00 11/27/17 21:47 (Milk Of Magnesia Liq) 30 ml Q12H PRN PO 11/24/17 17:00 (Senokot) 17.2 mg Q12H PRN PO 11/24/17 17:00 11/26/17 06:42 (Dulcolax Supp) 10 mg DAILY PRN RECTAL 11/24/17 17:00 (Lactulose Liq) 30 ml DAILY PRN PO 11/24/17 17:00 (NS Flush) UNSCH PRN IV FLUSH 11/24/17 18:15 (Heparin Inj) UNSCH PRN IV FLUSH 11/24/17 18:15 (Trandate Inj) 10 mg Q6H PRN IV PUSH 11/24/17 20:45 (Catapres) 0.1 mg Q6H PRN PO 11/24/17 22:30 11/28/17 00:39 ([place] 5-325 Mg) 1 tab Q4H PRN PO 11/24/17 22:30 ([place] 7.5-325 Mg) 1 tab Q4H PRN PO 11/24/17 22:30 11/25/17 12:40 (Morphine Inj) 1 mg Q3H PRN IV PUSH 11/24/17 22:30 (Dimetapp Liq) 5 ml Q6H PRN PO 11/24/17 23:15 11/28/17 20:11 (Robitussin La Pediatric Cough Liq) 3.75 mg Q6H PRN PO 11/24/17 23:15 11/24/17 23:51 (Heparin Inj) 5,000 units Q8H SQ 11/26/17 06:00 11/29/17 05:33 (Albuterol Neb) 2.5 mg Q4HR NEB PRN INH 11/27/17 01:00 (Diflucan) 200 mg DAILY PO 11/27/17 17:30 12/11/17 17:29 11/28/17 10:19 Sodium Chloride 1,000 ml @ 0 mls/hr Q0M PRN OTHER 11/29/17 10:55 UNV (Heparin Inj) 8,000 units UNSCH PRN IV FLUSH 11/29/17 11:00 UNV Sodium Chloride 1,000 ml @ 200 mls/hr Q5H PRN IV 11/29/17 10:55 UNV Sodium Chloride 1,000 ml @ 0 mls/hr Q0M PRN OTHER 11/29/17 10:55 UNV (Mannitol Inj) 12.5 gm UNSCH PRN IV 11/29/17 11:00 UNV Albumin Human 100 ml @ 60 mls/hr UNSCH PRN IV 11/29/17 11:00 UNV (NS Flush) 5 ml UNSCH PRN IV FLUSH 11/29/17 11:00 UNV (Heparin Inj) UNSCH PRN .XX 11/29/17 11:00 UNV (Gentamicin Inj) 20 mg UNSCH PRN OTHER 11/29/17 11:00 UNV (Zofran Inj) 4 mg UNSCH PRN IV PUSH 11/29/17 11:00 UNV (Tylenol) 650 mg UNSCH PRN PO 11/29/17 11:00 UNV (Benadryl) 25 mg UNSCH PRN PO 11/29/17 11:00 UNV (Nitrostat Sl) 0.4 mg UNSCH PRN SL 11/29/17 11:00 UNV (Catapres) 0.1 mg UNSCH PRN PO 11/29/17 11:00 UNV (Epogen Inj) 4,000 units UNSCH PRN IV PUSH 11/29/17 11:00 UNV (Gelfoam 12 Mm/7 Mm Top) 1 foam UNSCH PRN TOP 11/29/17 11:00 UNV (Suyapa Vazquez MD R1) Urinary Catheter: No (Suyapa Vazquez MD R1) A/P Assessment and Plan Patient is a 52 year old female with a past medical history significant of ESRD and HTN who presents to the ED following positive peritoneal fluid cultures per nephrology. Admitted for PD catheter removal, VasCath placement to allow for HD and anti-fungal therapy. Discharge Planning Pending dialysis chair; require hepatitis panel. (Suyapa Vazquez MD R1) Attending Attestation Patient seen, examined, and discussed with resident team. I agree with assessment and management as documented and discussed with me. Pt without complaints. Await arrangement of dialysis chair as an outpatient. (Angelica Khan MD) Problem List: (1) Cough ICD Codes: R05 - Cough Status: Acute Plan: On admission, cough 5 days. Improving. CXR: No acute disease. Sputum culture: Normal respiratory rsoa. Continue Bromphen and Robitussin. (2) Peritonitis due to infected peritoneal dialysis catheter ICD Codes: T85.71XA - Infection and inflammatory reaction due to peritoneal dialysis catheter, initial encounter; K65.9 - Peritonitis, unspecified Status: Acute Plan: Patient with history of ESRD on peritoneal dialysis. Peritoneal fluid cultured on Monday, growing yeast per nephrology. Records have been requested. Peritoneal dialysis catheter removal 11/24. ID consulted. Recommend Fluconazole 200mg PO daily x6 weeks. Medications: * In ED, Fluconazole 400mg IV once. * Micafungin 100mg IV daily. * 11/24/17--> 11/26/17. (3) ESRD (end stage renal disease) ICD Codes: N18.6 - End stage renal disease Status: Chronic Plan: Patient with history of ESRD, diagnosed two years ago. She previously had peritoneal dialysis daily at home. She was placed on transplant list . * VasCath placed by IR for HD 11/24. * Dialysis per nephrology. (4) Lower extremity edema ICD Codes: R60.0 - Localized edema Status: Resolved Plan: Left sided lower extremity edema and calf pain, present at admission. * US Doppler left lower extremity without evidence of DVT. (5) Hypertension ICD Codes: I10 - Essential (primary) hypertension Status: Chronic Plan: Patient with history of hypertension. Blood pressure elevated in hospital; anticipate improvement with hemodialysis. BPs have improved. * Continue home meds. * Labetalol 10mg IV q6hr PRN SBP >=170 or DBP >=100. Hold for HR<=60. (6) Hypothyroidism ICD Codes: E03.9 - Hypothyroidism, unspecified Status: Chronic Plan: Patient with history of hypothyroidism. * Continue home meds. (7) Depression ICD Codes: F32.9 - Major depressive disorder, single episode, unspecified Status: Chronic Plan: Patient with history of depression. * Continue home meds. (8) Fluid, Electrolyte, Nutrition and Prophylaxis Status: Acute Plan: Fluid: * Tolerating PO. Electrolyte: * Monitor and replete as necessary. Nutrition: * Renal diet Prophylaxis: * SCD. * Chemoprophylaxis: Heparin 5000 units q8hr. (Suyapa Vazquez MD R1) Problem Qualifiers (1) Peritonitis due to infected peritoneal dialysis catheter: Qualified Codes: T85.71XD - Infection and inflammatory reaction due to peritoneal dialysis catheter, subsequent encounter; K65.9 - Peritonitis, unspecified (2) Hypertension: Qualified Codes: I10 - Essential (primary) hypertension (3) Hypothyroidism: Qualified Codes: E03.9 - Hypothyroidism, unspecified (4) Depression: Suyapa Vazquez MD R1 Nov 29, 2017 12:07 Angelica Khan MD Nov 29, 2017 21:11
[2017-11-29] MEDS: FLUCONAZOLE 200 MG TAB PO SCH (12:46)
[2017-11-29] MEDS: VENLAFAXINE HCL XR 37.5 MG CAP PO SCH (12:46)
[2017-11-29] MEDS: DOCUSATE SODIUM 50 MG/SENNA 8.6 MG TAB PO SCH ×2 (12:47→21:02)
[2017-11-29] MEDS: FUROSEMIDE 80 MG TAB PO SCH (12:58)
[2017-11-29] MEDS: ACETAMINOPHEN 325 MG TAB PO PRN (14:39)
[2017-11-29] MEDS ORDERED: [UNRECOGNIZED DRUG - CODE] PO (15:42)
[2017-11-29] MEDS ORDERED: DIFL200T PO (15:42)
--- NOTE | 2017-11-29 15:42 | HHI.DCPOC ---
Discharge Care Plan Diagnosis: (1) Hypertension (2) Hypothyroidism (3) Cough (4) Peritonitis due to infected peritoneal dialysis catheter (5) ESRD (end stage renal disease) Goals to Promote Your Health * To prevent worsening of your condition and complications * To maintain your health at the optimal level Directions to Meet Your Goals Take your medications as prescribed Follow your dietary instruction Follow activity as directed Keep your appointments as scheduled Take your immunizations and boosters as scheduled If your symptoms worsen call your PCP, if no PCP go to Urgent Care Center or Emergency Room Smoking is Dangerous to Your Health. Avoid second hand smoke Call the 24-hour hour crisis hotline for domestic abuse at Suyapa Vazquez MD R1 Nov 29, 2017 15:42
[2017-11-29] MEDS: traZODone HCL 50 MG TAB PO SCH (21:02)
[2017-11-30] VITALS: BP 136/90; PULSE 84; RESP 18; TEMP 97.4; O2SAT 95
[2017-11-30 03:34] VITALS: O2SAT 96
[2017-11-30] MEDS: HEPARIN SODIUM - SQ 10,000 UNITS/ML VIAL SQ SCH (06:00)
[2017-11-30] MEDS: LEVOTHYROXINE SODIUM 100 MCG TAB PO SCH (06:17)
[2017-11-30 06:31] VITALS: BP 142/87; PULSE 70; RESP 18; TEMP 99.1; O2SAT 98
[2017-11-30 07:48] VITALS: BP 163/93; PULSE 82; RESP 20; TEMP 97.7; O2SAT 93
[2017-11-30] MEDS: SODIUM CHLORIDE 0.9% FLUSH 10 ML FLUSH IV FLUSH SCH (09:00)
[2017-11-30] MEDS: SEVELAMER CARBONATE 800 MG TAB PO SCH ×2 (09:00→12:29)
[2017-11-30] MEDS: FLUCONAZOLE 200 MG TAB PO SCH (09:21)
[2017-11-30] MEDS: VENLAFAXINE HCL XR 37.5 MG CAP PO SCH (09:21)
[2017-11-30] MEDS: DOCUSATE SODIUM 50 MG/SENNA 8.6 MG TAB PO SCH (09:21)
[2017-11-30] MEDS: FUROSEMIDE 80 MG TAB PO SCH (09:21)
--- NOTE | 2017-11-30 09:30 | HHI.FPPN ---
Subjective Remarks Patient was seen and evaluated this morning. She reports feeling well. She denies chest pain, shortness of breath, nausea, vomiting, diarrhea and constipation. She is anxiously awaiting her discharge; dialysis chair is being set-up with the assistance of case management. All questions were answered. (Suyapa Vazquez MD R1) Objective Vitals Vital Signs Date Time Temp Pulse Resp B/P (MAP) Pulse Ox O2 Delivery O2 Flow Rate FiO2 11/30/17 07:48 97.7 82 20 163/93 (116) 93 11/30/17 06:31 99.1 70 18 142/87 (105) 98 11/30/17 03:34 96 11/30/17 00:00 97.4 84 18 136/90 (105) 95 11/29/17 20:28 98.0 86 18 136/73 (94) 11/29/17 16:51 97.8 87 20 137/77 (97) 95 11/29/17 15:30 95 21 11/29/17 12:00 97.7 86 20 161/87 (111) 95 I/O 11/29/17 11/29/17 11/29/17 11/30/17 11/30/17 11/30/17 07:00 15:00 23:00 07:00 15:00 23:00 Intake Total 600 ml Output Total 1000 ml Balance -400 ml Intake Oral 600 ml Hemodialysis 1000 ml # Voids 7 (Suyapa Vazquez MD R1) Result Diagram: 11/29/17 0802 11/29/17 0802 Objective Remarks GENERAL: This is a well-nourished, well-developed patient, in no apparent distress. SKIN: Warm and dry. VasCath placed on right. Bandage covering incision site of PD catheter removal. HEAD: Atraumatic. Normocephalic. EYES: Pupils equal round. Extraocular motions intact. No scleral icterus. No injection or drainage. ENT: Nose without bleeding, purulent drainage or septal hematoma. Airway patent. NECK: Supple, nontender, no meningeal signs. CARDIOVASCULAR: Regular rate and rhythm without murmurs, gallops, or rubs. RESPIRATORY: Clear to auscultation anteriorly. Breath sounds equal bilaterally. No wheezes, rales, or rhonchi. GASTROINTESTINAL: Abdomen soft, non-tender, nondistended. No hepato-splenomegaly , or palpable masses. No guarding. MUSCULOSKELETAL: Extremities without clubbing, cyanosis. NEUROLOGICAL: Awake and alert. Cranial nerves II through XII intact. Motor and sensory grossly within normal limits. Normal speech. Medications and IVs Current Medications Medications (Trade) Dose Ordered Sig/Dasia Route Start Time Stop Time Status Last Admin (Norvasc) 10 mg DAILY PO 11/24/17 17:00 11/30/17 09:20 (Lasix) 80 mg DAILY PO 11/25/17 09:00 11/30/17 09:21 (Synthroid) 100 mcg DAILY@0600 PO 11/25/17 06:00 11/30/17 06:17 (Renvela) 800 mg TID PO 11/24/17 18:00 11/29/17 18:06 (Desyrel) 50 mg HS PO 11/24/17 21:00 11/29/17 21:02 (Effexor Xr) 37.5 mg DAILY PO 11/24/17 17:15 11/30/17 09:21 (NS Flush) 2 ml UNSCH PRN IV FLUSH 11/24/17 17:00 11/26/17 10:53 (NS Flush) 2 ml BID IV FLUSH 11/24/17 21:00 11/28/17 20:10 (Zofran Inj) 4 mg Q6H PRN IVP 11/24/17 17:00 11/26/17 10:52 (Tylenol) 650 mg Q6H PRN PO 11/24/17 17:00 11/29/17 14:39 (Monica-Colace) 1 tab BID PO 11/24/17 21:00 11/30/17 09:21 (Milk Of Magnesia Liq) 30 ml Q12H PRN PO 11/24/17 17:00 (Senokot) 17.2 mg Q12H PRN PO 11/24/17 17:00 11/26/17 06:42 (Dulcolax Supp) 10 mg DAILY PRN RECTAL 11/24/17 17:00 (Lactulose Liq) 30 ml DAILY PRN PO 11/24/17 17:00 (NS Flush) UNSCH PRN IV FLUSH 11/24/17 18:15 (Heparin Inj) UNSCH PRN IV FLUSH 11/24/17 18:15 (Trandate Inj) 10 mg Q6H PRN IV PUSH 11/24/17 20:45 (Catapres) 0.1 mg Q6H PRN PO 11/24/17 22:30 11/28/17 00:39 ([place] 5-325 Mg) 1 tab Q4H PRN PO 11/24/17 22:30 ([place] 7.5-325 Mg) 1 tab Q4H PRN PO 11/24/17 22:30 11/25/17 12:40 (Morphine Inj) 1 mg Q3H PRN IV PUSH 11/24/17 22:30 (Dimetapp Liq) 5 ml Q6H PRN PO 11/24/17 23:15 11/28/17 20:11 (Robitussin La Pediatric Cough Liq) 3.75 mg Q6H PRN PO 11/24/17 23:15 11/24/17 23:51 (Heparin Inj) 5,000 units Q8H SQ 11/26/17 06:00 11/30/17 06:00 (Albuterol Neb) 2.5 mg Q4HR NEB PRN INH 11/27/17 01:00 (Diflucan) 200 mg DAILY PO 11/27/17 17:30 12/11/17 17:29 11/30/17 09:21 Sodium Chloride 1,000 ml @ 0 mls/hr Q0M PRN OTHER 11/29/17 10:55 (Heparin Inj) 8,000 units UNSCH PRN IV FLUSH 11/29/17 11:00 Sodium Chloride 1,000 ml @ 200 mls/hr Q5H PRN IV 11/29/17 10:55 Sodium Chloride 1,000 ml @ 0 mls/hr Q0M PRN OTHER 11/29/17 10:55 (Mannitol Inj) 12.5 gm UNSCH PRN IV 11/29/17 11:00 Albumin Human 100 ml @ 60 mls/hr UNSCH PRN IV 11/29/17 11:00 (NS Flush) 5 ml UNSCH PRN IV FLUSH 11/29/17 11:00 (Heparin Inj) UNSCH PRN .XX 11/29/17 11:00 (Gentamicin Inj) 20 mg UNSCH PRN OTHER 11/29/17 11:00 (Zofran Inj) 4 mg UNSCH PRN IV PUSH 11/29/17 11:00 (Tylenol) 650 mg UNSCH PRN PO 11/29/17 11:00 (Benadryl) 25 mg UNSCH PRN PO 11/29/17 11:00 (Nitrostat Sl) 0.4 mg UNSCH PRN SL 11/29/17 11:00 (Catapres) 0.1 mg UNSCH PRN PO 11/29/17 11:00 (Epogen Inj) 4,000 units UNSCH PRN IV PUSH 11/29/17 11:00 (Gelfoam 12 Mm/7 Mm Top) 1 foam UNSCH PRN TOP 11/29/17 11:00 (Suyapa Vazquez MD R1) Urinary Catheter: No (Suyapa Vazquez MD R1) Vascular Central Line Catheter: No (Suyapa Vazquez MD R1) A/P Assessment and Plan Patient is a 52 year old female with a past medical history significant of ESRD and HTN who presents to the ED following positive peritoneal fluid cultures per nephrology. Admitted for PD catheter removal, VasCath placement to allow for HD and anti-fungal therapy. Discharge Planning Likely today; pending dialysis chair. (Suyapa Vazquez MD R1) Attending Attestation Patient seen and examined, discussed with resident team. I agree with assessment and management as documented with me. Pt without compmlaints. Discharge today, once dialysis chair time is arranged. (Angelica Khan MD) Problem List: (1) Cough ICD Codes: R05 - Cough Status: Acute Plan: On admission, cough 5 days. Resolving. CXR: No acute disease. Sputum culture: Normal respiratory rosa. Continue Bromphen and Robitussin. (2) Peritonitis due to infected peritoneal dialysis catheter ICD Codes: T85.71XA - Infection and inflammatory reaction due to peritoneal dialysis catheter, initial encounter; K65.9 - Peritonitis, unspecified Status: Acute Plan: Patient with history of ESRD on peritoneal dialysis. Peritoneal fluid cultured on Monday, growing yeast per nephrology. Records have been requested. Peritoneal dialysis catheter removal 11/24. ID consulted. Recommend Fluconazole 200mg PO daily x6 weeks. Medications: * In ED, Fluconazole 400mg IV once. * Micafungin 100mg IV daily. * 11/24/17--> 11/26/17. (3) ESRD (end stage renal disease) ICD Codes: N18.6 - End stage renal disease Status: Chronic Plan: Patient with history of ESRD, diagnosed two years ago. She previously had peritoneal dialysis daily at home. She was placed on transplant list . * VasCath placed by IR for HD 11/24. * Dialysis per nephrology. (4) Lower extremity edema ICD Codes: R60.0 - Localized edema Status: Resolved Plan: Left sided lower extremity edema and calf pain, present at admission. * US Doppler left lower extremity without evidence of DVT. (5) Hypertension ICD Codes: I10 - Essential (primary) hypertension Status: Chronic Plan: Patient with history of hypertension. Blood pressure elevated in hospital; anticipate improvement with hemodialysis. BPs have improved. * Continue home meds. * Labetalol 10mg IV q6hr PRN SBP >=170 or DBP >=100. Hold for HR<=60. (6) Hypothyroidism ICD Codes: E03.9 - Hypothyroidism, unspecified Status: Chronic Plan: Patient with history of hypothyroidism. * Continue home meds. (7) Depression ICD Codes: F32.9 - Major depressive disorder, single episode, unspecified Status: Chronic Plan: Patient with history of depression. * Continue home meds. (8) Fluid, Electrolyte, Nutrition and Prophylaxis Status: Acute Plan: Fluid: * Tolerating PO. Electrolyte: * Monitor and replete as necessary. Nutrition: * Renal diet Prophylaxis: * SCD. * Chemoprophylaxis: Heparin 5000 units q8hr. (Suyapa Vazquez MD R1) Problem Qualifiers (1) Peritonitis due to infected peritoneal dialysis catheter: Qualified Codes: T85.71XD - Infection and inflammatory reaction due to peritoneal dialysis catheter, subsequent encounter; K65.9 - Peritonitis, unspecified (2) Hypertension: Qualified Codes: I10 - Essential (primary) hypertension (3) Hypothyroidism: Qualified Codes: E03.9 - Hypothyroidism, unspecified (4) Depression: Suyapa Vazquez MD R1 Nov 30, 2017 09:30 Angelica Khan MD Nov 30, 2017 21:15
[2017-11-30 09:45] LABS: HEMATOCRIT 30.9 % (35.0-46.0); HEMOGLOBIN 10.4 GM/DL (11.6-15.3); MEAN CELL VOLUME 87.6 FL (80.0-100.0); MEAN CORPUSCULAR HEMOGLOBIN 29.6 PG (27.0-34.0); MEAN CORPUSCULAR HGB CONC 33.8 % (32.0-36.0); MEAN PLATELET VOLUME 8.7 FL (7.0-11.0); PLATELET COUNT 250 TH/MM3 (150-450); RED BLOOD COUNT 3.52 MIL/MM3 (4.00-5.30); RED CELL DISTRIBUTION WIDTH 12.4 % (11.6-17.2); WHITE BLOOD COUNT 7.1 TH/MM3 (4.0-11.0)
[2017-11-30 10:09] LABS: BICARBONATE 28.2 MEQ/L (21.0-32.0); CREATININE 6.63 MG/DL (0.50-1.00)
[2017-11-30 11:50] VITALS: BP 152/83; PULSE 85; RESP 20; TEMP 97.9; O2SAT 95
--- NOTE | 2017-11-30 14:58 | HHI.NPPN ---
Subjective History of Present Illness 52 year old female with ESRD Fungal peritonitis Objective Data Data 11/30/17 12/01/17 19:00 07:00 Intake Total 720 ml Balance 720 ml Intake Oral 720 ml # Voids 1 Vital Signs Date Time Temp Pulse Resp B/P (MAP) Pulse Ox O2 Delivery O2 Flow Rate FiO2 11/30/17 11:50 97.9 85 20 152/83 (106) 95 11/30/17 07:48 97.7 82 20 163/93 (116) 93 11/30/17 06:31 99.1 70 18 142/87 (105) 98 11/30/17 03:34 96 11/30/17 00:00 97.4 84 18 136/90 (105) 95 11/29/17 20:28 98.0 86 18 136/73 (94) 11/29/17 16:51 97.8 87 20 137/77 (97) 95 11/29/17 15:30 95 21 -: 11/30/17 0657 11/30/17 0657 Physical Exam General Appearance: Well Developed, No Acute Distress Neck Neck Exam: Neck Supple Pulmonary Resp Exam: Clear Bilaterally Cardiology CV Exam: Regular, Normal Sinus Rhythm Gastrointestinal/Abdomen GI Exam: Soft, Non-Tender Assessment/Plan Problem List: (1) Peritonitis due to infected peritoneal dialysis catheter ICD Codes: T85.71XA - Infection and inflammatory reaction due to peritoneal dialysis catheter, initial encounter; K65.9 - Peritonitis, unspecified Status: Acute Plan: ESRD on HD PermCath inserted she will need HD set up called [facility] patient do not wish to do Nocturnal HD continue HD until fungal Peritonitis is treated with Fluconazole Will follow along with you (2) ESRD (end stage renal disease) ICD Codes: N18.6 - End stage renal disease Status: Chronic Plan: Convert temporarily on hemodialysis she is being treated for fungal peritonitis (3) Hypertension ICD Codes: I10 - Essential (primary) hypertension Status: Chronic Plan: Continue to monitor Problem Qualifiers (1) Peritonitis due to infected peritoneal dialysis catheter: Qualified Codes: T85.71XD - Infection and inflammatory reaction due to peritoneal dialysis catheter, subsequent encounter; K65.9 - Peritonitis, unspecified (2) Hypertension: Qualified Codes: I10 - Essential (primary) hypertension Jayce Parks MD Nov 30, 2017 14:58
[2017-11-30 16:26] VITALS: BP 136/80; PULSE 92; RESP 20; TEMP 98; O2SAT 97
== END 2017-11-30 16:29 | disposition home or self-care (01) | DRG 981 ==
LOC: NEPE 12:35 → NEDA 14:55 → N05A 20:25
PROVIDERS: ADMIT Family Medicine; ATTEND Family Medicine
PROC: 0WPG03Z Removal of Infusion Device from Peritoneal Cavity, Open Approach (ICD-10-PCS; 2017-11-24)
PROC: 05HM33Z Insertion of Infusion Device into Right Internal Jugular Vein, Percutaneous Approach (ICD-10-PCS; principal; 2017-11-24 18:28)
PROC: 5A1D70Z Performance of Urinary Filtration, Intermittent, Less than 6 Hours Per Day (ICD-10-PCS; 2017-11-25)
DX: T85.71XA Infection and inflammatory reaction due to peritoneal dialysis catheter, initial encounter (principal); K65.8 Other peritonitis; B37.89 Other sites of candidiasis; N18.6 End stage renal disease; Z76.82 Awaiting organ transplant status; N25.81 Secondary hyperparathyroidism of renal origin; I12.0 Hypertensive chronic kidney disease with stage 5 chronic kidney disease or end stage renal disease; M79.662 Pain in left lower leg; E03.9 Hypothyroidism, unspecified; F32.9 Major depressive disorder, single episode, unspecified; Z87.891 Personal history of nicotine dependence; Z99.2 Dependence on renal dialysis; Y84.8 Other medical procedures as the cause of abnormal reaction of the patient, or of later complication, without mention of misadventure at the time of the procedure; R60.0 Localized edema; R06.2 Wheezing
CPT/HCPCS: 36558; 71045; 76937; 77001; 80048; 80053; 80074; 81001; 83880; 85025; 85027; 85610; 85730; 87015; 87040; 87070; 87102; 87106; 87116; 87176; 87205; 87206; 88112; 88305; 89051; 90935; 93005; 93971; 94150; 94667; 94668; 96374; 99152; 99285; C1750; C1769; J1450; J1644; J2248; J2250; J2405; J3010; J3370; J7050